=== PATIENT | male | born 1970 | race Caucasian/White ===

== ENCOUNTER 2018-10-24 19:45 | Inpatient (IN) | payer SELFPAY ==
[~2018-10-24] VITALS: Ht 172.7 cm; Wt 72.6 kg
--- OUTSIDE RECORDS SUMMARY | 2018-10-24 19:50 | XMS REPORT | Clinical Summary ---
Author Author Admin, ANNE Organization [facility] Address Unknown Phone Allergies, Adverse Reactions, Alerts Allergy Name Reaction Description Start Date Severity Status Provider No Known Allergies Carmel Saldana Conditions or Problems Problem Name Problem Code Onset Date Status Entry Date Provider Comment Standard Description Annotate PLEURISY 511.0 Active Corby Márquez MD Pleurisy without mention of effusion or current tuberculosis Health examination of defined subpopulations V70.5 Active Kiarra Stubbs LPN Health examination of defined subpopulations Bronchitis-Acute 466.0 Inactive Trey Burks DO Acute bronchitis Tobacco user 305.1 Active Trey Burks DO Tobacco use disorder Bronchitis-Acute ICD-466.0 Inactive Trey Burks DO Medication List Medication Instructions Start Date Stop Date Generic Name NDC Status Provider Patient Instruction PREDNISONE 20 MG TAB 1 tablet twice daily for 2 days, then 1 tablet once daily for 2 days PREDNISONE 82698110703 Active Trey Burks DO Active AZITHROMYCIN 250 MG TABS 2 po qd x 1 day, then 1 po qd x 4 days AZITHROMYCIN 73515917519 No Longer Active Trey Burks DO Active [facility] IBUPROFEN IB 200 MG TABS 600 mg q 6 hrs prn pain IBUPROFEN 60628284963 No Longer Active Trey Burks DO Active HYDROCODONE-ACETAMINOPHEN 5-325 MG TABS 1 or 2 q 6 hrs prn pain HYDROCODONE-ACETAMINOPHEN 07221978422 No Longer Active Trey Burks DO Active LORTAB 7.5-500 MG TABS take 1 tab po TID HYDROCODONE-ACETAMINOPHEN 33282315173 No Longer Active Trey Burks DO Active PREDNISONE 20 MG TAB 2 tabs daily for 3 days, 1 tab daily for 3 days, 1/2 tab daily for 2 days PREDNISONE 30830829135 No Longer Active Corby Márquez MD Active LORTAB 7.5-500 MG TABS take 1 tab po TID LORTAB 7.5-500 MG TABS HYDROCODONE-ACETAMINOPHEN Inactive HYDROCODONE-ACETAMINOPHEN 5-325 MG TABS 1 or 2 q 6 hrs prn pain HYDROCODONE-ACETAMINOPHEN 5-325 MG TABS 970982 HYDROCODONE-ACETAMINOPHEN Inactive [facility] IBUPROFEN IB 200 MG TABS 600 mg q 6 hrs prn pain [facility] IBUPROFEN IB 200 MG TABS 592698 IBUPROFEN Inactive PREDNISONE 20 MG TAB 2 tabs daily for 3 days, 1 tab daily for 3 days, 1/2 tab daily for 2 days PREDNISONE 20 MG TAB 536184 PREDNISONE Inactive AZITHROMYCIN 250 MG TABS 2 po qd x 1 day, then 1 po qd x 4 days AZITHROMYCIN 250 MG TABS 0247297 AZITHROMYCIN Inactive Vital Signs Date Name Value Unit Range Description blood pressure, diastolic 88 mm[Hg] BP snowden blood pressure, systolic 145 mm[Hg] BP sys height E&M 69 [in_us] Bdy height pulse rate E&M 80 /min Heart rate temperature E&M 98.3 [degF] Body temperature weight E&M 176.13 [lb_av] Weight Measured Encounters Code Encounter Date Provider Facility CPT-93247 Level 3 Est. 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 Patient 10:37:36 CDT Corby Márquez MD [facility] Procedures Code Procedure Name Date Entry Date Standard Description CPT-19710 Spec Collection and Handling Fee 11:50:17 PUBLIC WELFARE DIRECTOR
--- OUTSIDE RECORDS SUMMARY | 2018-10-24 19:50 | XMS REPORT | Clinical Summary ---
Author Author Admin, ANNE Organization [facility] Address Unknown Phone Unavailable Allergies, Adverse Reactions, Alerts Allergy Name Reaction Description Start Date Severity Status Provider No Known Allergies SOILA Rea Conditions or Problems Problem Name Problem Code [...] Active Trey Burks DO Tobacco use disorder Hypertension, benign essential 401.1 Active Do Beyer MD PhD Benign essential hypertension Bronchitis-Acute ICD-466.0 Inactive Trey Burks DO Medication List Medication Instructions Start Date Stop Date Generic Name [facility] Status Provider Patient Instruction LISINOPRIL-HYDROCHLOROTHIAZIDE 10-12.5 MG TABS 1 pill daily, for blood pressure LISINOPRIL-HYDROCHLOROTHIAZIDE 39078835742 Active Trey Burks DO Active TRAZODONE HCL 50 MG TABS 1 tab at bedtime TRAZODONE HCL 27568849810 Active Do Beyer MD PhD Active PREDNISONE 20 MG TAB 1 tablet twice daily for 2 days, then 1 tablet once daily for 2 days PREDNISONE 83498366111 No Longer Active Do Beyer MD PhD Active AZITHROMYCIN 250 MG TABS 2 po qd x 1 day, then 1 po qd x 4 days AZITHROMYCIN 57519984095 No Longer Active Trey W Vitaliy DO Active [facility] IBUPROFEN IB 200 MG TABS 600 mg q 6 hrs prn pain IBUPROFEN 73211685799 No Longer Active Trey Burks DO Active HYDROCODONE-ACETAMINOPHEN 5-325 MG TABS 1 or 2 q 6 hrs prn pain HYDROCODONE-ACETAMINOPHEN 69291579552 No Longer Active Trey Burks DO Active LORTAB 7.5-500 MG TABS take 1 tab po TID HYDROCODONE-ACETAMINOPHEN 13373957612 No Longer Active Trey Burks DO Active PREDNISONE 20 MG TAB 2 tabs daily for 3 days, 1 tab daily for 3 days, 1/2 tab daily for 2 days PREDNISONE 63119956408 No Longer Active Corby Márquez MD Active LORTAB 7.5-500 MG TABS take 1 tab po TID LORTAB 7.5-500 MG TABS HYDROCODONE-ACETAMINOPHEN Inactive HYDROCODONE-ACETAMINOPHEN 5-325 MG TABS 1 or 2 q 6 hrs prn pain HYDROCODONE-ACETAMINOPHEN 5-325 MG TABS 093793 HYDROCODONE-ACETAMINOPHEN Inactive [facility] IBUPROFEN IB 200 MG TABS 600 mg q 6 hrs prn pain [facility] IBUPROFEN IB 200 MG TABS 159205 IBUPROFEN Inactive PREDNISONE 20 MG TAB 1 tablet twice daily for 2 days, then 1 tablet once daily for 2 days PREDNISONE 20 MG TAB 519882 PREDNISONE Inactive PREDNISONE 20 MG TAB 2 tabs daily for 3 days, 1 tab daily for 3 days, 1/2 tab daily for 2 days PREDNISONE 20 MG TAB 097114 PREDNISONE Inactive AZITHROMYCIN 250 MG TABS 2 po qd x 1 day, then 1 po qd x 4 days AZITHROMYCIN 250 MG TABS 4293491 AZITHROMYCIN Inactive Vital Signs Date Name Value Unit Range Description blood pressure, diastolic - 8462-4 95 mm[Hg] BP snowden blood pressure, systolic - 8480-6 161 mm[Hg] BP sys pulse rate E&M - 8867-4 77 /min Heart rate temperature E&M 97.1 [degF] Body temperature weight E&M - 3141-9 168 [lb_av] Weight Measured blood pressure, diastolic - 8462-4 88 mm[Hg] BP snowden blood pressure, systolic - 8480-6 145 mm[Hg] BP sys height E&M - 8302-2 69 [in_us] Bdy height pulse rate E&M - 8867-4 80 /min Heart rate temperature E&M 98.3 [degF] Body temperature weight E&M - 3141-9 176.13 [lb_av] Weight Measured Diagnostic Results Date Name Value Unit Range Description Lab Report: CBC, Comp. Metabolic Panel, MICROALBUMIN - Chemistry sodium, serum 139 mmol/L 776-560 3152/09/03 potassium, serum 4.3 mmol/L 3.5-5.2 chloride, serum 101 mmol/L 98-107 carbon dioxide, venous blood 25.1 mmol/L 21.0-32.0 blood glucose 89 mg/dL 65-110 urea nitrogen, blood 23 mg/dL 7-18 creatinine, serum 1.20 mg/dL 0.60-1.30 alanine aminotransferase (SGPT), serum 27 U/L 12-78 aspartate aminotransferase (SGOT), serum 20 U/L 15-37 alkaline phosphatase, serum 70 U/L 50-136 calcium, serum 10.7 mg/dL 8.5-10.1 bilirubin, serum, total 0.60 mg/dL 0.00-1.00 albumin/creatinine ratio, urine < 30 mg/g mg/g{creat} 0-29 Lab Report: CBC, Comp. Metabolic Panel, MICROALBUMIN - Hematology leukocyte count, blood 7.6 10^3/MM^3 10*3/mm3 4.6-10.2 erythrocyte (RBC) count 4.70 10^6/MM^3 10*6/mm3 4.69-6.13 hemoglobin, blood 15.4 g/dL 13.5-17.5 hematocrit, blood 44.3 % 41.0-53.0 mean corpuscular volume, RBC 94 fL 80-97 mean corpuscular hemoglobin, RBC 32.8 pg 27.0-31.2 mean corpuscular hemoglobin concentration, RBC 34.8 G/DL % 31.8-35.4 red blood cell distribution width 13.8 % 11.6-14.8 platelet count 301 10^3/MM^3 10*3/mm3 142-424 Lab Report: CBC, Comp. Metabolic Panel, MICROALBUMIN - Lab microalbumin, urine 30 0-19 Lab Report: Thyroid Stimulating Hormone (L), Free Thyroxine (L) - Chemistry TSH 2.36 m[iU]/mL 0.36-3.74 thyroxine, serum, free 0.81 ng/dL 0.76-1.46 Encounters Code Encounter Date Provider Facility CPT-09399 Level 4 Est. Patient 20:00:09 CDT Do Beyer MD PhD [facility] CPT-89627 Level 3 Est. 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 Patient 10:37:36 CDT Corby Márquez MD [facility] Procedures Code Procedure Name Date Entry Date Standard Description CPT-89228 Spec Collection and Handling Fee 11:50:17 PARKING METER INSTALLER
--- OUTSIDE RECORDS SUMMARY | 2018-10-24 19:50 | XMS REPORT | Clinical Summary ---
Author Author Admin, E Organization [facility] Address Unknown Phone Unavailable Allergies, Adverse Reactions, Alerts Allergy Name Reaction Description Start Date Severity Status Provider No Known Allergies Josi Doherty Conditions or Problems Problem Name Problem Code [...] Do Beyer MD PhD Benign essential hypertension Bipolar affective disorder 296.80 Active Evin Graves MD Bipolar disorder, unspecified ADHD 314.01 Active Evin Graves MD Attention deficit disorder of childhood with hyperactivity Alcohol abuse 305.00 Active Evin Graves MD Alcohol abuse, unspecified drinking behavior Bronchitis-Acute ICD-466.0 Inactive Trey Burks DO Medication List Medication Instructions Start Date Stop Date Generic Name NDC Status Provider Patient Instruction ABILIFY 10 MG TABS 1 daily for Bipolar symptoms ARIPIPRAZOLE 65098468284 Active Evin Graves MD Active LISINOPRIL 10 MG TABS Take 1 tablet daily LISINOPRIL 11015794886 Active Hiwot Zavala Active LISINOPRIL-HYDROCHLOROTHIAZIDE 10-12.5 MG TABS 1 pill daily, for blood pressure LISINOPRIL-HYDROCHLOROTHIAZIDE 49782188938 No Longer Active Evin Graves MD Active TRAZODONE HCL 50 MG TABS 1 tab at bedtime TRAZODONE HCL 95215034406 Active Do Beyer MD PhD Active PREDNISONE 20 MG TAB 1 tablet twice daily for 2 days, then 1 tablet once daily for 2 days PREDNISONE 12085533540 No Longer Active Do Beyer MD PhD Active AZITHROMYCIN 250 MG TABS 2 po qd x 1 day, then 1 po qd x 4 days AZITHROMYCIN 48831115410 No Longer Active Trey Burks DO Active [facility] IBUPROFEN IB 200 MG TABS 600 mg q 6 hrs prn pain IBUPROFEN 86610195115 No Longer Active Trey Burks DO Active HYDROCODONE-ACETAMINOPHEN 5-325 MG TABS 1 or 2 q 6 hrs prn pain HYDROCODONE-ACETAMINOPHEN 48182798811 No Longer Active Trey Burks DO Active LORTAB 7.5-500 MG TABS take 1 tab po TID HYDROCODONE-ACETAMINOPHEN 63703888921 No Longer Active Trey Burks DO Active PREDNISONE 20 MG TAB 2 tabs daily for 3 days, 1 tab daily for 3 days, 1/2 tab daily for 2 days PREDNISONE 35456067022 No Longer Active Corby Márquez MD Active LORTAB 7.5-500 MG TABS take 1 tab po TID LORTAB 7.5-500 MG TABS HYDROCODONE-ACETAMINOPHEN Inactive HYDROCODONE-ACETAMINOPHEN 5-325 MG TABS 1 or 2 q 6 hrs prn pain HYDROCODONE-ACETAMINOPHEN 5-325 MG TABS 639321 HYDROCODONE-ACETAMINOPHEN Inactive [facility] IBUPROFEN IB 200 MG TABS 600 mg q 6 hrs prn pain [facility] IBUPROFEN IB 200 MG TABS 179908 IBUPROFEN Inactive PREDNISONE 20 MG TAB 1 tablet twice daily for 2 days, then 1 tablet once daily for 2 days PREDNISONE 20 MG TAB 763461 PREDNISONE Inactive LISINOPRIL-HYDROCHLOROTHIAZIDE 10-12.5 MG TABS 1 pill daily, for blood pressure LISINOPRIL-HYDROCHLOROTHIAZIDE 10-12.5 MG TABS 085409 LISINOPRIL-HYDROCHLOROTHIAZIDE Inactive PREDNISONE 20 MG TAB 2 tabs daily for 3 days, 1 tab daily for 3 days, 1/2 tab daily for 2 days PREDNISONE 20 MG TAB 382773 PREDNISONE Inactive AZITHROMYCIN 250 MG TABS 2 po qd x 1 day, then 1 po qd x 4 days AZITHROMYCIN 250 MG TABS 8176749 AZITHROMYCIN Inactive Vital Signs Date Name Value Unit Range Description blood pressure, diastolic - 8462-4 78 mm[Hg] BP snowden blood pressure, systolic - 8480-6 130 mm[Hg] BP sys pulse rate E&M - 8867-4 95 /min Heart rate temperature E&M 99.4 [degF] Body temperature weight E&M - 3141-9 159 [lb_av] Weight Measured Diagnostic Results Date Name Value Unit Range Description Lab Report: CBC, Comp. Metabolic Panel, MICROALBUMIN - Chemistry sodium, serum 139 mmol/L 098-623 4890/09/03 potassium, serum 4.3 mmol/L 3.5-5.2 chloride, serum [...] 0.76-1.46 Encounters Code Encounter Date Provider Facility CPT-62311 Level 4 Est. 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 Patient 20:00:09 CDT Do Beyer MD PhD [facility] CPT-28947 Level 3 Est. Patient 11:26:17 INDUSTRIAL SERVICER Trey Burks DO [facility] CPT-71104 Level 3 Est. Patient 10:37:36 CDT Corby Márquez MD [facility] Procedures Code Procedure Name Date Entry Date Standard Description CPT-19776 Spec Collection and Handling Fee 11:50:17 INDUSTRIAL SERVICER
--- OUTSIDE RECORDS SUMMARY | 2018-10-24 19:50 | XMS REPORT | Clinical Summary ---
Author Author Admin, E Organization [facility] Address Unknown Phone Unavailable Allergies, Adverse Reactions, [...] Instructions Start Date Stop Date Generic Name ND Status Provider Patient Instruction ABILIFY 10 MG TABS 1 daily for Bipolar symptoms ARIPIPRAZOLE 86791578936 Active Evin Graves MD Active LISINOPRIL 10 MG TABS Take 1 tablet daily LISINOPRIL 97865973857 Active Evin Graves MD Active LISINOPRIL-HYDROCHLOROTHIAZIDE 10-12.5 MG TABS 1 pill daily, for blood pressure LISINOPRIL-HYDROCHLOROTHIAZIDE 21398624369 No Longer Active Evin Graves MD Active TRAZODONE HCL 50 MG TABS 1 tab at bedtime TRAZODONE HCL 50228734559 Active Do Beyer MD PhD Active PREDNISONE 20 MG TAB 1 tablet twice daily for 2 days, then 1 tablet once daily for 2 days PREDNISONE 40929331590 No Longer Active Do Beyer MD PhD Active AZITHROMYCIN 250 MG TABS 2 po qd x 1 day, then 1 po qd x 4 days AZITHROMYCIN 30575063413 No Longer Active Trey Burks DO Active [facility] IBUPROFEN IB 200 MG TABS 600 mg q 6 hrs prn pain IBUPROFEN 03774368893 No Longer Active Trey Burks DO Active HYDROCODONE-ACETAMINOPHEN 5-325 MG TABS 1 or 2 q 6 hrs prn pain HYDROCODONE-ACETAMINOPHEN 10207617798 No Longer Active Trey Burks DO Active LORTAB 7.5-500 MG TABS take 1 tab po TID HYDROCODONE-ACETAMINOPHEN 88925056135 No Longer Active Trey Burks DO Active PREDNISONE 20 MG TAB 2 tabs daily for 3 days, 1 tab daily for 3 days, 1/2 tab daily for 2 days PREDNISONE 92930782530 No Longer Active Corby Márquez MD Active LORTAB 7.5-500 MG TABS take 1 tab po TID LORTAB 7.5-500 MG TABS HYDROCODONE-ACETAMINOPHEN Inactive HYDROCODONE-ACETAMINOPHEN 5-325 MG TABS 1 or 2 q 6 hrs prn pain HYDROCODONE-ACETAMINOPHEN 5-325 MG TABS 185996 HYDROCODONE-ACETAMINOPHEN Inactive [facility] IBUPROFEN IB 200 MG TABS 600 mg q 6 hrs prn pain [facility] IBUPROFEN IB 200 MG TABS 018362 IBUPROFEN Inactive PREDNISONE 20 MG TAB 1 tablet twice daily for 2 days, then 1 tablet once daily for 2 days PREDNISONE 20 MG TAB 743169 PREDNISONE Inactive LISINOPRIL-HYDROCHLOROTHIAZIDE 10-12.5 MG TABS 1 pill daily, for blood pressure LISINOPRIL-HYDROCHLOROTHIAZIDE 10-12.5 MG TABS 099922 LISINOPRIL-HYDROCHLOROTHIAZIDE Inactive PREDNISONE 20 MG TAB 2 tabs daily for 3 days, 1 tab daily for 3 days, 1/2 tab daily for 2 days PREDNISONE 20 MG TAB 390657 PREDNISONE Inactive AZITHROMYCIN 250 MG TABS 2 po qd x 1 day, then 1 po qd x 4 days AZITHROMYCIN 250 MG TABS 3222131 AZITHROMYCIN Inactive Vital Signs Date Name Value [...] MICROALBUMIN - Chemistry sodium, serum 139 mmol/L 971-385 6899/09/03 potassium, serum 4.3 mmol/L 3.5-5.2 chloride, serum [...] 0.76-1.46 Encounters Code Encounter Date Provider Facility CPT-85779 Level 4 Est. 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 Patient 20:00:09 CDT Do Beyer MD PhD [facility] CPT-44712 Level 3 Est. Patient 11:26:17 EGG BUYER Trey Burks DO [facility] CPT-82032 Level 3 Est. Patient 10:37:36 CDT Corby Márquez MD [facility] Procedures Code Procedure Name Date Entry Date Standard Description CPT-73159 Spec Collection and Handling Fee 11:50:17 EGG BUYER
--- OUTSIDE RECORDS SUMMARY | 2018-10-24 19:50 | XMS REPORT | Clinical Summary ---
Author Author Admin, E Organization [facility] Address Unknown Phone Unavailable Allergies, Adverse [...] TABS 1 daily for Bipolar symptoms ARIPIPRAZOLE 17159196272 Active Evin Graves MD Active LISINOPRIL 10 MG TABS Take 1 tablet daily LISINOPRIL 93353255322 Active Hiwot Zavala Active LISINOPRIL-HYDROCHLOROTHIAZIDE 10-12.5 MG TABS 1 pill daily, for blood pressure LISINOPRIL-HYDROCHLOROTHIAZIDE 93813742054 No Longer Active Evin Graves MD Active TRAZODONE HCL 50 MG TABS 1 tab at bedtime TRAZODONE HCL 92734861659 Active Do Beyer MD PhD Active PREDNISONE 20 MG TAB 1 tablet twice daily for 2 days, then 1 tablet once daily for 2 days PREDNISONE 03406884600 No Longer Active Do Beyer MD PhD Active AZITHROMYCIN 250 MG TABS 2 po qd x 1 day, then 1 po qd x 4 days AZITHROMYCIN 48592426101 No Longer Active Trey Burks DO Active [facility] IBUPROFEN IB 200 MG TABS 600 mg q 6 hrs prn pain IBUPROFEN 63594620098 No Longer Active Trey Burks DO Active HYDROCODONE-ACETAMINOPHEN 5-325 MG TABS 1 or 2 q 6 hrs prn pain HYDROCODONE-ACETAMINOPHEN 23983365516 No Longer Active Trey Burks DO Active LORTAB 7.5-500 MG TABS take 1 tab po TID HYDROCODONE-ACETAMINOPHEN 23972381299 No Longer Active Trey Burks DO Active PREDNISONE 20 MG TAB 2 tabs daily for 3 days, 1 tab daily for 3 days, 1/2 tab daily for 2 days PREDNISONE 70499714642 No Longer Active Corby Márquez MD Active LORTAB 7.5-500 MG TABS take 1 tab po TID LORTAB 7.5-500 MG TABS HYDROCODONE-ACETAMINOPHEN Inactive HYDROCODONE-ACETAMINOPHEN 5-325 MG TABS 1 or 2 q 6 hrs prn pain HYDROCODONE-ACETAMINOPHEN 5-325 MG TABS 669641 HYDROCODONE-ACETAMINOPHEN Inactive [facility] IBUPROFEN IB 200 MG TABS 600 mg q 6 hrs prn pain [facility] IBUPROFEN IB 200 MG TABS 394820 IBUPROFEN Inactive PREDNISONE 20 MG TAB 1 tablet twice daily for 2 days, then 1 tablet once daily for 2 days PREDNISONE 20 MG TAB 645184 PREDNISONE Inactive LISINOPRIL-HYDROCHLOROTHIAZIDE 10-12.5 MG TABS 1 pill daily, for blood pressure LISINOPRIL-HYDROCHLOROTHIAZIDE 10-12.5 MG TABS 539244 LISINOPRIL-HYDROCHLOROTHIAZIDE Inactive PREDNISONE 20 MG TAB 2 tabs daily for 3 days, 1 tab daily for 3 days, 1/2 tab daily for 2 days PREDNISONE 20 MG TAB 148684 PREDNISONE Inactive AZITHROMYCIN 250 MG TABS 2 po qd x 1 day, then 1 po qd x 4 days AZITHROMYCIN 250 MG TABS 5751991 AZITHROMYCIN Inactive Vital Signs Date Name Value [...] MICROALBUMIN - Chemistry sodium, serum 139 mmol/L 185-843 3514/09/03 potassium, serum 4.3 mmol/L 3.5-5.2 chloride, serum [...] 0.76-1.46 Encounters Code Encounter Date Provider Facility CPT-78723 Level 4 Est. 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 Patient 20:00:09 CDT Do Beyer MD PhD [facility] CPT-88406 Level 3 Est. Patient 11:26:17 NEWS COPY EDITOR Trey Burks DO [facility] CPT-69619 Level 3 Est. Patient 10:37:36 CDT Corby Márquez MD [facility] Procedures Code Procedure Name Date Entry Date Standard Description CPT-88205 Spec Collection and Handling Fee 11:50:17 NEWS COPY EDITOR
--- OUTSIDE RECORDS SUMMARY | 2018-10-24 19:51 | XMS REPORT | Clinical Summary ---
[...] Instructions Start Date Stop Date Generic Name [facility] Status Provider Patient Instruction LISINOPRIL-HYDROCHLOROTHIAZIDE 10-12.5 MG TABS 1 pill daily, for blood pressure LISINOPRIL-HYDROCHLOROTHIAZIDE 60944422178 Active Trey Burks DO Active TRAZODONE HCL 50 MG TABS 1 tab at bedtime TRAZODONE HCL 16784214020 Active Do Beyer MD PhD Active PREDNISONE 20 MG TAB 1 tablet twice daily for 2 days, then 1 tablet once daily for 2 days PREDNISONE 25024708484 No Longer Active Do Beyer MD PhD Active AZITHROMYCIN 250 MG TABS 2 po qd x 1 day, then 1 po qd x 4 days AZITHROMYCIN 11294955441 No Longer Active Trey W Vitaliy DO Active [facility] IBUPROFEN IB 200 MG TABS 600 mg q 6 hrs prn pain IBUPROFEN 02351033890 No Longer Active Trey Burks DO Active HYDROCODONE-ACETAMINOPHEN 5-325 MG TABS 1 or 2 q 6 hrs prn pain HYDROCODONE-ACETAMINOPHEN 63626749159 No Longer Active Trey Burks DO Active LORTAB 7.5-500 MG TABS take 1 tab po TID HYDROCODONE-ACETAMINOPHEN 34766004447 No Longer Active Trey Burks DO Active PREDNISONE 20 MG TAB 2 tabs daily for 3 days, 1 tab daily for 3 days, 1/2 tab daily for 2 days PREDNISONE 82864207667 No Longer Active Corby Márquez MD Active LORTAB 7.5-500 MG TABS take 1 tab po TID LORTAB 7.5-500 MG TABS HYDROCODONE-ACETAMINOPHEN Inactive HYDROCODONE-ACETAMINOPHEN 5-325 MG TABS 1 or 2 q 6 hrs prn pain HYDROCODONE-ACETAMINOPHEN 5-325 MG TABS 576983 HYDROCODONE-ACETAMINOPHEN Inactive [facility] IBUPROFEN IB 200 MG TABS 600 mg q 6 hrs prn pain [facility] IBUPROFEN IB 200 MG TABS 420334 IBUPROFEN Inactive PREDNISONE 20 MG TAB 1 tablet twice daily for 2 days, then 1 tablet once daily for 2 days PREDNISONE 20 MG TAB 849027 PREDNISONE Inactive PREDNISONE 20 MG TAB 2 tabs daily for 3 days, 1 tab daily for 3 days, 1/2 tab daily for 2 days PREDNISONE 20 MG TAB 798761 PREDNISONE Inactive AZITHROMYCIN 250 MG TABS 2 po qd x 1 day, then 1 po qd x 4 days AZITHROMYCIN 250 MG TABS 7504579 AZITHROMYCIN Inactive Vital Signs Date Name Value [...] MICROALBUMIN - Chemistry sodium, serum 139 mmol/L 748-095 0288/09/03 potassium, serum 4.3 mmol/L 3.5-5.2 chloride, serum [...] 0.76-1.46 Encounters Code Encounter Date Provider Facility CPT-61418 Level 4 Est. Patient 20:00:09 CDT Do Beyer MD PhD [facility] CPT-77938 Level 3 Est. 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 Patient 10:37:36 CDT Corby Márquez MD [facility] Procedures Code Procedure Name Date Entry Date Standard Description CPT-09212 Spec Collection and Handling Fee 11:50:17 BARN AND PROPERTY MANAGER
--- OUTSIDE RECORDS SUMMARY | 2018-10-24 19:51 | XMS REPORT | Clinical Summary ---
Author Author Admin, ANNE Organization [facility] Address Unknown Phone Allergies, Adverse Reactions, Alerts [...] tablet once daily for 2 days PREDNISONE 91090052607 Active Trey Burks DO Active AZITHROMYCIN 250 MG TABS 2 po qd x 1 day, then 1 po qd x 4 days AZITHROMYCIN 48614519994 No Longer Active Trey Burks DO Active [facility] IBUPROFEN IB 200 MG TABS 600 mg q 6 hrs prn pain IBUPROFEN 08446275470 No Longer Active Trey Burks DO Active HYDROCODONE-ACETAMINOPHEN 5-325 MG TABS 1 or 2 q 6 hrs prn pain HYDROCODONE-ACETAMINOPHEN 07142025132 No Longer Active Trey Burks DO Active LORTAB 7.5-500 MG TABS take 1 tab po TID HYDROCODONE-ACETAMINOPHEN 31827686449 No Longer Active Trey Burks DO Active PREDNISONE 20 MG TAB 2 tabs daily for 3 days, 1 tab daily for 3 days, 1/2 tab daily for 2 days PREDNISONE 05596227502 No Longer Active Corby Márquez MD Active LORTAB 7.5-500 MG TABS take 1 tab po TID LORTAB 7.5-500 MG TABS HYDROCODONE-ACETAMINOPHEN Inactive HYDROCODONE-ACETAMINOPHEN 5-325 MG TABS 1 or 2 q 6 hrs prn pain HYDROCODONE-ACETAMINOPHEN 5-325 MG TABS 093917 HYDROCODONE-ACETAMINOPHEN Inactive [facility] IBUPROFEN IB 200 MG TABS 600 mg q 6 hrs prn pain [facility] IBUPROFEN IB 200 MG TABS 139494 IBUPROFEN Inactive PREDNISONE 20 MG TAB 2 tabs daily for 3 days, 1 tab daily for 3 days, 1/2 tab daily for 2 days PREDNISONE 20 MG TAB 320541 PREDNISONE Inactive AZITHROMYCIN 250 MG TABS 2 po qd x 1 day, then 1 po qd x 4 days AZITHROMYCIN 250 MG TABS 8639860 AZITHROMYCIN Inactive Vital Signs Date Name Value Unit Range Description blood pressure, diastolic 88 mm[Hg] BP snowden blood pressure, systolic 145 mm[Hg] BP sys height E&M 69 [in_us] Bdy height pulse rate E&M 80 /min Heart rate temperature E&M 98.3 [degF] Body temperature weight E&M 176.13 [lb_av] Weight Measured Encounters Code Encounter Date Provider Facility CPT-00573 Level 3 Est. 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 Patient 10:37:36 CDT Corby Márquez MD [facility] Procedures Code Procedure Name Date Entry Date Standard Description CPT-68277 Spec Collection and Handling Fee 11:50:17 TRIM MECHANIC
--- OUTSIDE RECORDS SUMMARY | 2018-10-24 19:51 | XMS REPORT | Clinical Summary ---
Author Author Admin, ANNE Organization [facility] Address Unknown Phone Unavailable Allergies, Adverse Reactions, [...] Instructions Start Date Stop Date Generic Name [facility] Status Provider Patient Instruction LISINOPRIL-HYDROCHLOROTHIAZIDE 10-12.5 MG TABS 1 pill daily, for blood pressure LISINOPRIL-HYDROCHLOROTHIAZIDE 72348991286 Active Trey Burks DO Active TRAZODONE HCL 50 MG TABS 1 tab at bedtime TRAZODONE HCL 02571866057 Active Do Beyer MD PhD Active PREDNISONE 20 MG TAB 1 tablet twice daily for 2 days, then 1 tablet once daily for 2 days PREDNISONE 18565970364 No Longer Active Do Beyer MD PhD Active AZITHROMYCIN 250 MG TABS 2 po qd x 1 day, then 1 po qd x 4 days AZITHROMYCIN 19966239260 No Longer Active Trey W Vitaliy DO Active [facility] IBUPROFEN IB 200 MG TABS 600 mg q 6 hrs prn pain IBUPROFEN 24355481397 No Longer Active Trey Burks DO Active HYDROCODONE-ACETAMINOPHEN 5-325 MG TABS 1 or 2 q 6 hrs prn pain HYDROCODONE-ACETAMINOPHEN 17398686570 No Longer Active Trey Burks DO Active LORTAB 7.5-500 MG TABS take 1 tab po TID HYDROCODONE-ACETAMINOPHEN 93310213814 No Longer Active Trey Burks DO Active PREDNISONE 20 MG TAB 2 tabs daily for 3 days, 1 tab daily for 3 days, 1/2 tab daily for 2 days PREDNISONE 90570428540 No Longer Active Corby Márquez MD Active LORTAB 7.5-500 MG TABS take 1 tab po TID LORTAB 7.5-500 MG TABS HYDROCODONE-ACETAMINOPHEN Inactive HYDROCODONE-ACETAMINOPHEN 5-325 MG TABS 1 or 2 q 6 hrs prn pain HYDROCODONE-ACETAMINOPHEN 5-325 MG TABS 326142 HYDROCODONE-ACETAMINOPHEN Inactive [facility] IBUPROFEN IB 200 MG TABS 600 mg q 6 hrs prn pain [facility] IBUPROFEN IB 200 MG TABS 698087 IBUPROFEN Inactive PREDNISONE 20 MG TAB 1 tablet twice daily for 2 days, then 1 tablet once daily for 2 days PREDNISONE 20 MG TAB 215802 PREDNISONE Inactive PREDNISONE 20 MG TAB 2 tabs daily for 3 days, 1 tab daily for 3 days, 1/2 tab daily for 2 days PREDNISONE 20 MG TAB 120663 PREDNISONE Inactive AZITHROMYCIN 250 MG TABS 2 po qd x 1 day, then 1 po qd x 4 days AZITHROMYCIN 250 MG TABS 4256358 AZITHROMYCIN Inactive Vital Signs Date Name Value [...] MICROALBUMIN - Chemistry sodium, serum 139 mmol/L 331-593 8208/09/03 potassium, serum 4.3 mmol/L 3.5-5.2 chloride, serum [...] MICROALBUMIN - Lab microalbumin, urine 30 0-19 Encounters Code Encounter Date Provider Facility CPT-37638 Level 4 Est. Patient 20:00:09 CDT Do Beyer MD PhD [facility] CPT-09534 Level 3 Est. 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 Patient 10:37:36 CDT Corby Márquez MD [facility] Procedures Code Procedure Name Date Entry Date Standard Description CPT-75729 Spec Collection and Handling Fee 11:50:17 PERMASTONE INSTALLER
--- OUTSIDE RECORDS SUMMARY | 2018-10-24 19:51 | XMS REPORT | Clinical Summary ---
Author Author Admin, ANNE Organization [facility] Address Unknown Phone Allergies, Adverse Reactions, Alerts [...] tablet once daily for 2 days PREDNISONE 46093539397 Active Trey Burks DO Active AZITHROMYCIN 250 MG TABS 2 po qd x 1 day, then 1 po qd x 4 days AZITHROMYCIN 44986700796 No Longer Active Trey Burks DO Active [facility] IBUPROFEN IB 200 MG TABS 600 mg q 6 hrs prn pain IBUPROFEN 64573264616 No Longer Active Trey Burks DO Active HYDROCODONE-ACETAMINOPHEN 5-325 MG TABS 1 or 2 q 6 hrs prn pain HYDROCODONE-ACETAMINOPHEN 73746133526 No Longer Active Trey Burks DO Active LORTAB 7.5-500 MG TABS take 1 tab po TID HYDROCODONE-ACETAMINOPHEN 63692175106 No Longer Active Trey Burks DO Active PREDNISONE 20 MG TAB 2 tabs daily for 3 days, 1 tab daily for 3 days, 1/2 tab daily for 2 days PREDNISONE 96950047668 No Longer Active Corby Márquez MD Active LORTAB 7.5-500 MG TABS take 1 tab po TID LORTAB 7.5-500 MG TABS HYDROCODONE-ACETAMINOPHEN Inactive HYDROCODONE-ACETAMINOPHEN 5-325 MG TABS 1 or 2 q 6 hrs prn pain HYDROCODONE-ACETAMINOPHEN 5-325 MG TABS 949713 HYDROCODONE-ACETAMINOPHEN Inactive [facility] IBUPROFEN IB 200 MG TABS 600 mg q 6 hrs prn pain [facility] IBUPROFEN IB 200 MG TABS 864417 IBUPROFEN Inactive PREDNISONE 20 MG TAB 2 tabs daily for 3 days, 1 tab daily for 3 days, 1/2 tab daily for 2 days PREDNISONE 20 MG TAB 272010 PREDNISONE Inactive AZITHROMYCIN 250 MG TABS 2 po qd x 1 day, then 1 po qd x 4 days AZITHROMYCIN 250 MG TABS 5950836 AZITHROMYCIN Inactive Vital Signs Date Name Value Unit Range Description blood pressure, diastolic 88 mm[Hg] BP snowden blood pressure, systolic 145 mm[Hg] BP sys height E&M 69 [in_us] Bdy height pulse rate E&M 80 /min Heart rate temperature E&M 98.3 [degF] Body temperature weight E&M 176.13 [lb_av] Weight Measured Encounters Code Encounter Date Provider Facility CPT-52946 Level 3 Est. 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 Patient 10:37:36 CDT Corby Márquez MD [facility] Procedures Code Procedure Name Date Entry Date Standard Description CPT-89330 Spec Collection and Handling Fee 11:50:17 SCRIPT WRITER
--- OUTSIDE RECORDS SUMMARY | 2018-10-24 19:51 | XMS REPORT | Clinical Summary ---
Author Author Admin, ANNE Organization [facility] Address Unknown Phone Unavailable Allergies, Adverse Reactions, Alerts Allergy Name Reaction Description Start Date Severity Status Provider No Known Allergies Isis Steward MA Conditions or Problems Problem Name Problem Code [...] Instructions Start Date Stop Date Generic Name [facility] Status Provider Patient Instruction LISINOPRIL-HYDROCHLOROTHIAZIDE 10-12.5 MG TABS 1 pill daily, for blood pressure LISINOPRIL-HYDROCHLOROTHIAZIDE 93192003515 Active Trey Burks DO Active TRAZODONE HCL 50 MG TABS 1 tab at bedtime TRAZODONE HCL 01066888037 Active Do Beyer MD PhD Active PREDNISONE 20 MG TAB 1 tablet twice daily for 2 days, then 1 tablet once daily for 2 days PREDNISONE 32668763607 No Longer Active Do Beyer MD PhD Active AZITHROMYCIN 250 MG TABS 2 po qd x 1 day, then 1 po qd x 4 days AZITHROMYCIN 50618333211 No Longer Active Trey W Vitaliy DO Active [facility] IBUPROFEN IB 200 MG TABS 600 mg q 6 hrs prn pain IBUPROFEN 21388096370 No Longer Active Trey Burks DO Active HYDROCODONE-ACETAMINOPHEN 5-325 MG TABS 1 or 2 q 6 hrs prn pain HYDROCODONE-ACETAMINOPHEN 80488736867 No Longer Active Trey Burks DO Active LORTAB 7.5-500 MG TABS take 1 tab po TID HYDROCODONE-ACETAMINOPHEN 82353116304 No Longer Active Trey Burks DO Active PREDNISONE 20 MG TAB 2 tabs daily for 3 days, 1 tab daily for 3 days, 1/2 tab daily for 2 days PREDNISONE 15841365226 No Longer Active Corby Márquez MD Active LORTAB 7.5-500 MG TABS take 1 tab po TID LORTAB 7.5-500 MG TABS HYDROCODONE-ACETAMINOPHEN Inactive HYDROCODONE-ACETAMINOPHEN 5-325 MG TABS 1 or 2 q 6 hrs prn pain HYDROCODONE-ACETAMINOPHEN 5-325 MG TABS 898232 HYDROCODONE-ACETAMINOPHEN Inactive [facility] IBUPROFEN IB 200 MG TABS 600 mg q 6 hrs prn pain [facility] IBUPROFEN IB 200 MG TABS 117311 IBUPROFEN Inactive PREDNISONE 20 MG TAB 1 tablet twice daily for 2 days, then 1 tablet once daily for 2 days PREDNISONE 20 MG TAB 553609 PREDNISONE Inactive PREDNISONE 20 MG TAB 2 tabs daily for 3 days, 1 tab daily for 3 days, 1/2 tab daily for 2 days PREDNISONE 20 MG TAB 424005 PREDNISONE Inactive AZITHROMYCIN 250 MG TABS 2 po qd x 1 day, then 1 po qd x 4 days AZITHROMYCIN 250 MG TABS 2291034 AZITHROMYCIN Inactive Vital Signs Date Name Value [...] E&M - 3141-9 176.13 [lb_av] Weight Measured Encounters Code Encounter Date Provider Facility CPT-85455 Level 4 Est. Patient 20:00:09 CDT Do Beyer MD PhD [facility] CPT-02065 Level 3 Est. 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 Patient 10:37:36 CDT Corby Márquez MD [facility] Procedures Code Procedure Name Date Entry Date Standard Description CPT-76304 Spec Collection and Handling Fee 11:50:17 BOTTLE ASSEMBLER
--- OUTSIDE RECORDS SUMMARY | 2018-10-24 19:51 | XMS REPORT | Clinical Summary ---
Author Author Admin, ANNE Organization [facility] Address Unknown Phone Unavailable Allergies, Adverse Reactions, [...] Instructions Start Date Stop Date Generic Name [facility] Status Provider Patient Instruction LISINOPRIL-HYDROCHLOROTHIAZIDE 10-12.5 MG TABS 1 pill daily, for blood pressure LISINOPRIL-HYDROCHLOROTHIAZIDE 99910535480 Active Trey Burks DO Active TRAZODONE HCL 50 MG TABS 1 tab at bedtime TRAZODONE HCL 91735131098 Active Do Beyer MD PhD Active PREDNISONE 20 MG TAB 1 tablet twice daily for 2 days, then 1 tablet once daily for 2 days PREDNISONE 32166536681 No Longer Active Do Beyer MD PhD Active AZITHROMYCIN 250 MG TABS 2 po qd x 1 day, then 1 po qd x 4 days AZITHROMYCIN 40582261353 No Longer Active Trey W Vitaliy DO Active [facility] IBUPROFEN IB 200 MG TABS 600 mg q 6 hrs prn pain IBUPROFEN 93109876724 No Longer Active Trey Burks DO Active HYDROCODONE-ACETAMINOPHEN 5-325 MG TABS 1 or 2 q 6 hrs prn pain HYDROCODONE-ACETAMINOPHEN 13495752481 No Longer Active Trey Burks DO Active LORTAB 7.5-500 MG TABS take 1 tab po TID HYDROCODONE-ACETAMINOPHEN 05750799119 No Longer Active Trey Burks DO Active PREDNISONE 20 MG TAB 2 tabs daily for 3 days, 1 tab daily for 3 days, 1/2 tab daily for 2 days PREDNISONE 90823528511 No Longer Active Corby Márquez MD Active LORTAB 7.5-500 MG TABS take 1 tab po TID LORTAB 7.5-500 MG TABS HYDROCODONE-ACETAMINOPHEN Inactive HYDROCODONE-ACETAMINOPHEN 5-325 MG TABS 1 or 2 q 6 hrs prn pain HYDROCODONE-ACETAMINOPHEN 5-325 MG TABS 707317 HYDROCODONE-ACETAMINOPHEN Inactive [facility] IBUPROFEN IB 200 MG TABS 600 mg q 6 hrs prn pain [facility] IBUPROFEN IB 200 MG TABS 638400 IBUPROFEN Inactive PREDNISONE 20 MG TAB 1 tablet twice daily for 2 days, then 1 tablet once daily for 2 days PREDNISONE 20 MG TAB 219003 PREDNISONE Inactive PREDNISONE 20 MG TAB 2 tabs daily for 3 days, 1 tab daily for 3 days, 1/2 tab daily for 2 days PREDNISONE 20 MG TAB 211716 PREDNISONE Inactive AZITHROMYCIN 250 MG TABS 2 po qd x 1 day, then 1 po qd x 4 days AZITHROMYCIN 250 MG TABS 1414846 AZITHROMYCIN Inactive Vital Signs Date Name Value [...] Measured Encounters Code Encounter Date Provider Facility CPT-63643 Level 4 Est. Patient 20:00:09 CDT Do Beyer MD PhD [facility] CPT-59436 Level 3 Est. 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
--- OUTSIDE RECORDS SUMMARY | 2018-10-24 19:51 | XMS REPORT | Clinical Summary ---
Author Author Admin, ANNE Organization [facility] Address Unknown Phone Unavailable Allergies, Adverse Reactions, [...] Instructions Start Date Stop Date Generic Name [facility] Status Provider Patient Instruction LISINOPRIL-HYDROCHLOROTHIAZIDE 10-12.5 MG TABS 1 pill daily, for blood pressure LISINOPRIL-HYDROCHLOROTHIAZIDE 77651846735 Active Trey Burks DO Active TRAZODONE HCL 50 MG TABS 1 tab at bedtime TRAZODONE HCL 13334486750 Active Do Beyer MD PhD Active PREDNISONE 20 MG TAB 1 tablet twice daily for 2 days, then 1 tablet once daily for 2 days PREDNISONE 10489129751 No Longer Active Do Beyer MD PhD Active AZITHROMYCIN 250 MG TABS 2 po qd x 1 day, then 1 po qd x 4 days AZITHROMYCIN 07501821661 No Longer Active Trey W Vitaliy DO Active [facility] IBUPROFEN IB 200 MG TABS 600 mg q 6 hrs prn pain IBUPROFEN 83020162251 No Longer Active Trey Burks DO Active HYDROCODONE-ACETAMINOPHEN 5-325 MG TABS 1 or 2 q 6 hrs prn pain HYDROCODONE-ACETAMINOPHEN 59069728576 No Longer Active Trey Burks DO Active LORTAB 7.5-500 MG TABS take 1 tab po TID HYDROCODONE-ACETAMINOPHEN 45548631015 No Longer Active Trey Burks DO Active PREDNISONE 20 MG TAB 2 tabs daily for 3 days, 1 tab daily for 3 days, 1/2 tab daily for 2 days PREDNISONE 77780072832 No Longer Active Corby Márquez MD Active LORTAB 7.5-500 MG TABS take 1 tab po TID LORTAB 7.5-500 MG TABS HYDROCODONE-ACETAMINOPHEN Inactive HYDROCODONE-ACETAMINOPHEN 5-325 MG TABS 1 or 2 q 6 hrs prn pain HYDROCODONE-ACETAMINOPHEN 5-325 MG TABS 734340 HYDROCODONE-ACETAMINOPHEN Inactive [facility] IBUPROFEN IB 200 MG TABS 600 mg q 6 hrs prn pain [facility] IBUPROFEN IB 200 MG TABS 999302 IBUPROFEN Inactive PREDNISONE 20 MG TAB 1 tablet twice daily for 2 days, then 1 tablet once daily for 2 days PREDNISONE 20 MG TAB 425173 PREDNISONE Inactive PREDNISONE 20 MG TAB 2 tabs daily for 3 days, 1 tab daily for 3 days, 1/2 tab daily for 2 days PREDNISONE 20 MG TAB 843980 PREDNISONE Inactive AZITHROMYCIN 250 MG TABS 2 po qd x 1 day, then 1 po qd x 4 days AZITHROMYCIN 250 MG TABS 9203041 AZITHROMYCIN Inactive Vital Signs Date Name Value [...] MICROALBUMIN - Chemistry sodium, serum 139 mmol/L 477-308 7301/09/03 potassium, serum 4.3 mmol/L 3.5-5.2 chloride, serum [...] 0-19 Encounters Code Encounter Date Provider Facility CPT-54274 Level 4 Est. Patient 20:00:09 CDT Do Beyer MD PhD [facility] CPT-46595 Level 3 Est. 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 Patient 10:37:36 CDT Corby Márquez MD [facility] Procedures Code Procedure Name Date Entry Date Standard Description CPT-53591 Spec Collection and Handling Fee 11:50:17 POLICY ADVISER
--- OUTSIDE RECORDS SUMMARY | 2018-10-24 19:52 | XMS REPORT | Clinical Summary ---
Author Author Admin, ANNE Organization [facility] Address Unknown Phone Unavailable Allergies, Adverse Reactions, [...] Instructions Start Date Stop Date Generic Name [facility] Status Provider Patient Instruction LISINOPRIL-HYDROCHLOROTHIAZIDE 10-12.5 MG TABS 1 pill daily, for blood pressure LISINOPRIL-HYDROCHLOROTHIAZIDE 16224098465 Active Trey Burks DO Active TRAZODONE HCL 50 MG TABS 1 tab at bedtime TRAZODONE HCL 41501002146 Active Do Beyer MD PhD Active PREDNISONE 20 MG TAB 1 tablet twice daily for 2 days, then 1 tablet once daily for 2 days PREDNISONE 58409929801 No Longer Active Do Beyer MD PhD Active AZITHROMYCIN 250 MG TABS 2 po qd x 1 day, then 1 po qd x 4 days AZITHROMYCIN 38903859976 No Longer Active Trey W Vitaliy DO Active [facility] IBUPROFEN IB 200 MG TABS 600 mg q 6 hrs prn pain IBUPROFEN 44160875973 No Longer Active Trey Burks DO Active HYDROCODONE-ACETAMINOPHEN 5-325 MG TABS 1 or 2 q 6 hrs prn pain HYDROCODONE-ACETAMINOPHEN 05286489692 No Longer Active Trey Burks DO Active LORTAB 7.5-500 MG TABS take 1 tab po TID HYDROCODONE-ACETAMINOPHEN 84057515920 No Longer Active Trey Burks DO Active PREDNISONE 20 MG TAB 2 tabs daily for 3 days, 1 tab daily for 3 days, 1/2 tab daily for 2 days PREDNISONE 29595903824 No Longer Active Corby Márquez MD Active LORTAB 7.5-500 MG TABS take 1 tab po TID LORTAB 7.5-500 MG TABS HYDROCODONE-ACETAMINOPHEN Inactive HYDROCODONE-ACETAMINOPHEN 5-325 MG TABS 1 or 2 q 6 hrs prn pain HYDROCODONE-ACETAMINOPHEN 5-325 MG TABS 759733 HYDROCODONE-ACETAMINOPHEN Inactive [facility] IBUPROFEN IB 200 MG TABS 600 mg q 6 hrs prn pain [facility] IBUPROFEN IB 200 MG TABS 020531 IBUPROFEN Inactive PREDNISONE 20 MG TAB 1 tablet twice daily for 2 days, then 1 tablet once daily for 2 days PREDNISONE 20 MG TAB 733014 PREDNISONE Inactive PREDNISONE 20 MG TAB 2 tabs daily for 3 days, 1 tab daily for 3 days, 1/2 tab daily for 2 days PREDNISONE 20 MG TAB 056278 PREDNISONE Inactive AZITHROMYCIN 250 MG TABS 2 po qd x 1 day, then 1 po qd x 4 days AZITHROMYCIN 250 MG TABS 6129160 AZITHROMYCIN Inactive Vital Signs Date Name Value [...] MICROALBUMIN - Chemistry sodium, serum 139 mmol/L 488-417 4587/09/03 potassium, serum 4.3 mmol/L 3.5-5.2 chloride, serum [...] 0-19 Encounters Code Encounter Date Provider Facility CPT-63901 Level 4 Est. Patient 20:00:09 CDT Do Beyer MD PhD [facility] CPT-59758 Level 3 Est. 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 Patient 10:37:36 CDT Corby Márquez MD [facility] Procedures Code Procedure Name Date Entry Date Standard Description CPT-33721 Spec Collection and Handling Fee 11:50:17 ROADING ENGINEER
--- OUTSIDE RECORDS SUMMARY | 2018-10-24 19:52 | XMS REPORT | Clinical Summary ---
Author Author Admin, ANNE Organization [facility] Address Unknown Phone Unavailable Allergies, Adverse Reactions, [...] Instructions Start Date Stop Date Generic Name [facility] Status Provider Patient Instruction LISINOPRIL-HYDROCHLOROTHIAZIDE 10-12.5 MG TABS 1 pill daily, for blood pressure LISINOPRIL-HYDROCHLOROTHIAZIDE 51201370856 Active Trey Burks DO Active TRAZODONE HCL 50 MG TABS 1 tab at bedtime TRAZODONE HCL 60651728600 Active Do Beyer MD PhD Active PREDNISONE 20 MG TAB 1 tablet twice daily for 2 days, then 1 tablet once daily for 2 days PREDNISONE 93862230103 No Longer Active Do Beyer MD PhD Active AZITHROMYCIN 250 MG TABS 2 po qd x 1 day, then 1 po qd x 4 days AZITHROMYCIN 96327639176 No Longer Active Trey W Vitaliy DO Active [facility] IBUPROFEN IB 200 MG TABS 600 mg q 6 hrs prn pain IBUPROFEN 82078808629 No Longer Active Trey Burks DO Active HYDROCODONE-ACETAMINOPHEN 5-325 MG TABS 1 or 2 q 6 hrs prn pain HYDROCODONE-ACETAMINOPHEN 34282250159 No Longer Active Trey Burks DO Active LORTAB 7.5-500 MG TABS take 1 tab po TID HYDROCODONE-ACETAMINOPHEN 11388828620 No Longer Active Trey Burks DO Active PREDNISONE 20 MG TAB 2 tabs daily for 3 days, 1 tab daily for 3 days, 1/2 tab daily for 2 days PREDNISONE 80837421476 No Longer Active Corby Márquez MD Active LORTAB 7.5-500 MG TABS take 1 tab po TID LORTAB 7.5-500 MG TABS HYDROCODONE-ACETAMINOPHEN Inactive HYDROCODONE-ACETAMINOPHEN 5-325 MG TABS 1 or 2 q 6 hrs prn pain HYDROCODONE-ACETAMINOPHEN 5-325 MG TABS 716323 HYDROCODONE-ACETAMINOPHEN Inactive [facility] IBUPROFEN IB 200 MG TABS 600 mg q 6 hrs prn pain [facility] IBUPROFEN IB 200 MG TABS 135335 IBUPROFEN Inactive PREDNISONE 20 MG TAB 1 tablet twice daily for 2 days, then 1 tablet once daily for 2 days PREDNISONE 20 MG TAB 629225 PREDNISONE Inactive PREDNISONE 20 MG TAB 2 tabs daily for 3 days, 1 tab daily for 3 days, 1/2 tab daily for 2 days PREDNISONE 20 MG TAB 918751 PREDNISONE Inactive AZITHROMYCIN 250 MG TABS 2 po qd x 1 day, then 1 po qd x 4 days AZITHROMYCIN 250 MG TABS 0417234 AZITHROMYCIN Inactive Vital Signs Date Name Value [...] MICROALBUMIN - Chemistry sodium, serum 139 mmol/L 463-641 5380/09/03 potassium, serum 4.3 mmol/L 3.5-5.2 chloride, serum [...] 0-19 Encounters Code Encounter Date Provider Facility CPT-57200 Level 4 Est. Patient 20:00:09 CDT Do Beyer MD PhD [facility] CPT-05895 Level 3 Est. 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 CPT-15849 Level 3 Est. Patient 10:37:36 CDT Corby Márquez MD [facility] Procedures Code Procedure Name Date Entry Date Standard Description CPT-33463 Spec Collection and Handling Fee 11:50:17 CARRIER OPERATOR
--- OUTSIDE RECORDS SUMMARY | 2018-10-24 19:52 | XMS REPORT | Clinical Summary ---
Author Author Admin, ANNE Organization [facility] Address Unknown Phone Unavailable Allergies, Adverse [...] Instructions Start Date Stop Date Generic Name [facility] Status Provider Patient Instruction LISINOPRIL-HYDROCHLOROTHIAZIDE 10-12.5 MG TABS 1 pill daily, for blood pressure LISINOPRIL-HYDROCHLOROTHIAZIDE 10111931118 Active Trey Burks DO Active TRAZODONE HCL 50 MG TABS 1 tab at bedtime TRAZODONE HCL 57370340542 Active Do Beyer MD PhD Active PREDNISONE 20 MG TAB 1 tablet twice daily for 2 days, then 1 tablet once daily for 2 days PREDNISONE 99112709418 No Longer Active Do Beyer MD PhD Active AZITHROMYCIN 250 MG TABS 2 po qd x 1 day, then 1 po qd x 4 days AZITHROMYCIN 62758366817 No Longer Active Trey W Vitaliy DO Active [facility] IBUPROFEN IB 200 MG TABS 600 mg q 6 hrs prn pain IBUPROFEN 88395711842 No Longer Active Trey Burks DO Active HYDROCODONE-ACETAMINOPHEN 5-325 MG TABS 1 or 2 q 6 hrs prn pain HYDROCODONE-ACETAMINOPHEN 65699205805 No Longer Active Trey uBrks DO Active LORTAB 7.5-500 MG TABS take 1 tab po TID HYDROCODONE-ACETAMINOPHEN 67767373548 No Longer Active Trey Burks DO Active PREDNISONE 20 MG TAB 2 tabs daily for 3 days, 1 tab daily for 3 days, 1/2 tab daily for 2 days PREDNISONE 99675550008 No Longer Active Corby Márquez MD Active LORTAB 7.5-500 MG TABS take 1 tab po TID LORTAB 7.5-500 MG TABS HYDROCODONE-ACETAMINOPHEN Inactive HYDROCODONE-ACETAMINOPHEN 5-325 MG TABS 1 or 2 q 6 hrs prn pain HYDROCODONE-ACETAMINOPHEN 5-325 MG TABS 012498 HYDROCODONE-ACETAMINOPHEN Inactive [facility] IBUPROFEN IB 200 MG TABS 600 mg q 6 hrs prn pain [facility] IBUPROFEN IB 200 MG TABS 725365 IBUPROFEN Inactive PREDNISONE 20 MG TAB 1 tablet twice daily for 2 days, then 1 tablet once daily for 2 days PREDNISONE 20 MG TAB 791295 PREDNISONE Inactive PREDNISONE 20 MG TAB 2 tabs daily for 3 days, 1 tab daily for 3 days, 1/2 tab daily for 2 days PREDNISONE 20 MG TAB 054527 PREDNISONE Inactive AZITHROMYCIN 250 MG TABS 2 po qd x 1 day, then 1 po qd x 4 days AZITHROMYCIN 250 MG TABS 1858926 AZITHROMYCIN Inactive Vital Signs Date Name Value [...] MICROALBUMIN - Chemistry sodium, serum 139 mmol/L 828-392 0979/09/03 potassium, serum 4.3 mmol/L 3.5-5.2 chloride, serum [...] 0.76-1.46 Encounters Code Encounter Date Provider Facility CPT-52457 Level 4 Est. Patient 20:00:09 CDT Do Beyer MD PhD [facility] CPT-03615 Level 3 Est. 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 Patient 10:37:36 CDT Corby Márquez MD [facility] Procedures Code Procedure Name Date Entry Date Standard Description CPT-97180 Spec Collection and Handling Fee 11:50:17 OVERHEAD CRANE TECHNICIAN
--- OUTSIDE RECORDS SUMMARY | 2018-10-24 19:52 | XMS REPORT | Clinical Summary ---
Author Author Admin, ANNE Organization [facility] Address Unknown Phone Unavailable Allergies, Adverse [...] TABS 1 daily for Bipolar symptoms ARIPIPRAZOLE 73438882475 Active Evin Graves MD Active LISINOPRIL 10 MG TABS Take 1 tablet daily LISINOPRIL 89174511576 Active Evin Graves MD Active LISINOPRIL-HYDROCHLOROTHIAZIDE 10-12.5 MG TABS 1 pill daily, for blood pressure LISINOPRIL-HYDROCHLOROTHIAZIDE 34135314399 No Longer Active Evin Graves MD Active TRAZODONE HCL 50 MG TABS 1 tab at bedtime TRAZODONE HCL 46411600237 Active Do Beyer MD PhD Active PREDNISONE 20 MG TAB 1 tablet twice daily for 2 days, then 1 tablet once daily for 2 days PREDNISONE 80434799769 No Longer Active Do Beyer MD PhD Active AZITHROMYCIN 250 MG TABS 2 po qd x 1 day, then 1 po qd x 4 days AZITHROMYCIN 26168439098 No Longer Active Trye uBrks DO Active [facility] IBUPROFEN IB 200 MG TABS 600 mg q 6 hrs prn pain IBUPROFEN 65157068788 No Longer Active Trey Burks DO Active HYDROCODONE-ACETAMINOPHEN 5-325 MG TABS 1 or 2 q 6 hrs prn pain HYDROCODONE-ACETAMINOPHEN 70727640355 No Longer Active Trey Burks DO Active LORTAB 7.5-500 MG TABS take 1 tab po TID HYDROCODONE-ACETAMINOPHEN 09714744729 No Longer Active Trey Burks DO Active PREDNISONE 20 MG TAB 2 tabs daily for 3 days, 1 tab daily for 3 days, 1/2 tab daily for 2 days PREDNISONE 87333079684 No Longer Active Corby Márquez MD Active LORTAB 7.5-500 MG TABS take 1 tab po TID LORTAB 7.5-500 MG TABS HYDROCODONE-ACETAMINOPHEN Inactive HYDROCODONE-ACETAMINOPHEN 5-325 MG TABS 1 or 2 q 6 hrs prn pain HYDROCODONE-ACETAMINOPHEN 5-325 MG TABS 035719 HYDROCODONE-ACETAMINOPHEN Inactive [facility] IBUPROFEN IB 200 MG TABS 600 mg q 6 hrs prn pain [facility] IBUPROFEN IB 200 MG TABS 961864 IBUPROFEN Inactive PREDNISONE 20 MG TAB 1 tablet twice daily for 2 days, then 1 tablet once daily for 2 days PREDNISONE 20 MG TAB 356902 PREDNISONE Inactive LISINOPRIL-HYDROCHLOROTHIAZIDE 10-12.5 MG TABS 1 pill daily, for blood pressure LISINOPRIL-HYDROCHLOROTHIAZIDE 10-12.5 MG TABS 598683 LISINOPRIL-HYDROCHLOROTHIAZIDE Inactive PREDNISONE 20 MG TAB 2 tabs daily for 3 days, 1 tab daily for 3 days, 1/2 tab daily for 2 days PREDNISONE 20 MG TAB 508362 PREDNISONE Inactive AZITHROMYCIN 250 MG TABS 2 po qd x 1 day, then 1 po qd x 4 days AZITHROMYCIN 250 MG TABS 9089767 AZITHROMYCIN Inactive Vital Signs Date Name Value Unit Range Description blood pressure, diastolic 78 mm[Hg] BP snowden blood pressure, systolic 130 mm[Hg] BP sys pulse rate E&M 95 /min Heart rate temperature E&M 99.4 [degF] Body temperature weight E&M 159 [lb_av] Weight Measured blood pressure, diastolic 95 mm[Hg] BP snowden blood pressure, systolic 161 mm[Hg] BP sys pulse rate E&M 77 /min Heart rate temperature E&M 97.1 [degF] Body temperature weight E&M 168 [lb_av] Weight Measured blood pressure, diastolic 88 mm[Hg] BP snowden blood pressure, systolic 145 mm[Hg] BP sys height E&M 69 [in_us] Bdy height pulse rate E&M 80 /min Heart rate temperature E&M 98.3 [degF] Body temperature weight E&M 176.13 [lb_av] Weight Measured Diagnostic Results Date Name Value Unit Range Description Lab Report: CBC, Comp. Metabolic Panel, MICROALBUMIN - Chemistry sodium, serum 139 mmol/L 158-215 2265/09/03 potassium, serum 4.3 mmol/L 3.5-5.2 chloride, serum [...] 0.76-1.46 Encounters Code Encounter Date Provider Facility CPT-41849 Level 4 Est. 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 Patient 20:00:09 CDT Do Beyer MD PhD [facility] CPT-66714 Level 3 Est. 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 Patient 10:37:36 CDT Corby Márquez MD [facility] Procedures Code Procedure Name Date Entry Date Standard Description CPT-32862 Spec Collection and Handling Fee 11:50:17 ASPHALT DISTRIBUTOR TENDER
--- OUTSIDE RECORDS SUMMARY | 2018-10-24 19:52 | XMS REPORT | Clinical Summary ---
Author Author Admin, ANNE Organization [facility] Address Unknown Phone Unavailable Allergies, [...] Instructions Start Date Stop Date Generic Name [facility] Status Provider Patient Instruction LISINOPRIL-HYDROCHLOROTHIAZIDE 10-12.5 MG TABS 1 pill daily, for blood pressure LISINOPRIL-HYDROCHLOROTHIAZIDE 66295861625 Active Trey Burks DO Active TRAZODONE HCL 50 MG TABS 1 tab at bedtime TRAZODONE HCL 89850291319 Active Do Beyer MD PhD Active PREDNISONE 20 MG TAB 1 tablet twice daily for 2 days, then 1 tablet once daily for 2 days PREDNISONE 79300276791 No Longer Active Do Beyer MD PhD Active AZITHROMYCIN 250 MG TABS 2 po qd x 1 day, then 1 po qd x 4 days AZITHROMYCIN 78561665182 No Longer Active Trey W Vitaliy DO Active [facility] IBUPROFEN IB 200 MG TABS 600 mg q 6 hrs prn pain IBUPROFEN 38854428909 No Longer Active Trey Burks DO Active HYDROCODONE-ACETAMINOPHEN 5-325 MG TABS 1 or 2 q 6 hrs prn pain HYDROCODONE-ACETAMINOPHEN 98802836578 No Longer Active Trey Burks DO Active LORTAB 7.5-500 MG TABS take 1 tab po TID HYDROCODONE-ACETAMINOPHEN 10106009992 No Longer Active Trey Burks DO Active PREDNISONE 20 MG TAB 2 tabs daily for 3 days, 1 tab daily for 3 days, 1/2 tab daily for 2 days PREDNISONE 13983377634 No Longer Active Corby Márquez MD Active LORTAB 7.5-500 MG TABS take 1 tab po TID LORTAB 7.5-500 MG TABS HYDROCODONE-ACETAMINOPHEN Inactive HYDROCODONE-ACETAMINOPHEN 5-325 MG TABS 1 or 2 q 6 hrs prn pain HYDROCODONE-ACETAMINOPHEN 5-325 MG TABS 321081 HYDROCODONE-ACETAMINOPHEN Inactive [facility] IBUPROFEN IB 200 MG TABS 600 mg q 6 hrs prn pain [facility] IBUPROFEN IB 200 MG TABS 662858 IBUPROFEN Inactive PREDNISONE 20 MG TAB 1 tablet twice daily for 2 days, then 1 tablet once daily for 2 days PREDNISONE 20 MG TAB 298263 PREDNISONE Inactive PREDNISONE 20 MG TAB 2 tabs daily for 3 days, 1 tab daily for 3 days, 1/2 tab daily for 2 days PREDNISONE 20 MG TAB 231639 PREDNISONE Inactive AZITHROMYCIN 250 MG TABS 2 po qd x 1 day, then 1 po qd x 4 days AZITHROMYCIN 250 MG TABS 9466050 AZITHROMYCIN Inactive Vital Signs Date Name Value [...] MICROALBUMIN - Chemistry sodium, serum 139 mmol/L 529-852 0306/09/03 potassium, serum 4.3 mmol/L 3.5-5.2 chloride, serum [...] CBC, Comp. Metabolic Panel, MICROALBUMIN - Hematology mean corpuscular volume, RBC 94 fL 80-97 hematocrit, blood 44.3 % 41.0-53.0 hemoglobin, blood 15.4 g/dL 13.5-17.5 erythrocyte (RBC) count 4.70 10^6/MM^3 10*6/mm3 4.69-6.13 leukocyte count, blood 7.6 10^3/MM^3 10*3/mm3 4.6-10.2 mean corpuscular hemoglobin, RBC 32.8 pg 27.0-31.2 [...] 0.76-1.46 Encounters Code Encounter Date Provider Facility CPT-31463 Level 4 Est. Patient 20:00:09 CDT Do Beyer MD PhD [facility] CPT-75711 Level 3 Est. 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 Patient 10:37:36 CDT Corby Márquez MD [facility] Procedures Code Procedure Name Date Entry Date Standard Description CPT-22571 Spec Collection and Handling Fee 11:50:17 LEAD PRINTER
--- OUTSIDE RECORDS SUMMARY | 2018-10-24 19:52 | XMS REPORT | Clinical Summary ---
Author Author Admin, ANNE Organization [facility] Address Unknown Phone Allergies, Adverse Reactions, Alerts [...] tablet once daily for 2 days PREDNISONE 34612865185 Active Trey Burks DO Active AZITHROMYCIN 250 MG TABS 2 po qd x 1 day, then 1 po qd x 4 days AZITHROMYCIN 02258273775 No Longer Active Trey Burks DO Active [facility] IBUPROFEN IB 200 MG TABS 600 mg q 6 hrs prn pain IBUPROFEN 54673295138 No Longer Active Trey Burks DO Active HYDROCODONE-ACETAMINOPHEN 5-325 MG TABS 1 or 2 q 6 hrs prn pain HYDROCODONE-ACETAMINOPHEN 78164719957 No Longer Active Trey Burks DO Active LORTAB 7.5-500 MG TABS take 1 tab po TID HYDROCODONE-ACETAMINOPHEN 54397162212 No Longer Active Trey Burks DO Active PREDNISONE 20 MG TAB 2 tabs daily for 3 days, 1 tab daily for 3 days, 1/2 tab daily for 2 days PREDNISONE 93659521441 No Longer Active Corby Márquez MD Active LORTAB 7.5-500 MG TABS take 1 tab po TID LORTAB 7.5-500 MG TABS HYDROCODONE-ACETAMINOPHEN Inactive HYDROCODONE-ACETAMINOPHEN 5-325 MG TABS 1 or 2 q 6 hrs prn pain HYDROCODONE-ACETAMINOPHEN 5-325 MG TABS 912539 HYDROCODONE-ACETAMINOPHEN Inactive [facility] IBUPROFEN IB 200 MG TABS 600 mg q 6 hrs prn pain [facility] IBUPROFEN IB 200 MG TABS 317239 IBUPROFEN Inactive PREDNISONE 20 MG TAB 2 tabs daily for 3 days, 1 tab daily for 3 days, 1/2 tab daily for 2 days PREDNISONE 20 MG TAB 538542 PREDNISONE Inactive AZITHROMYCIN 250 MG TABS 2 po qd x 1 day, then 1 po qd x 4 days AZITHROMYCIN 250 MG TABS 4583583 AZITHROMYCIN Inactive Vital Signs Date Name Value Unit Range Description blood pressure, diastolic 88 mm[Hg] BP snowden blood pressure, systolic 145 mm[Hg] BP sys height E&M 69 [in_us] Bdy height pulse rate E&M 80 /min Heart rate temperature E&M 98.3 [degF] Body temperature weight E&M 176.13 [lb_av] Weight Measured Encounters Code Encounter Date Provider Facility CPT-26956 Level 3 Est. 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 Patient 10:37:36 CDT Corby Márquez MD [facility] Procedures Code Procedure Name Date Entry Date Standard Description CPT-91006 Spec Collection and Handling Fee 11:50:17 STAFF PSYCHOLOGIST
--- OUTSIDE RECORDS SUMMARY | 2018-10-24 19:53 | XMS REPORT | Clinical Summary ---
Author Author Admin, ANNE Organization [facility] Address Unknown Phone Unavailable Allergies, Adverse Reactions, [...] Instructions Start Date Stop Date Generic Name [facility] Status Provider Patient Instruction LISINOPRIL-HYDROCHLOROTHIAZIDE 10-12.5 MG TABS 1 pill daily, for blood pressure LISINOPRIL-HYDROCHLOROTHIAZIDE 78411310166 Active Idalmis Earl [employer] T[employer]OR Active TRAZODONE HCL 50 MG TABS 1 tab at bedtime TRAZODONE HCL 88236532899 Active Do Beyer MD PhD Active PREDNISONE 20 MG TAB 1 tablet twice daily for 2 days, then 1 tablet once daily for 2 days PREDNISONE 80096837321 No Longer Active Do Beyer MD PhD Active AZITHROMYCIN 250 MG TABS 2 po qd x 1 day, then 1 po qd x 4 days AZITHROMYCIN 51973235639 No Longer Active Trey W Vitaliy DO Active [facility] IBUPROFEN IB 200 MG TABS 600 mg q 6 hrs prn pain IBUPROFEN 13119711770 No Longer Active Trey Burks DO Active HYDROCODONE-ACETAMINOPHEN 5-325 MG TABS 1 or 2 q 6 hrs prn pain HYDROCODONE-ACETAMINOPHEN 41711120092 No Longer Active Trey Burks DO Active LORTAB 7.5-500 MG TABS take 1 tab po TID HYDROCODONE-ACETAMINOPHEN 45393514559 No Longer Active Trey Burks DO Active PREDNISONE 20 MG TAB 2 tabs daily for 3 days, 1 tab daily for 3 days, 1/2 tab daily for 2 days PREDNISONE 72739863199 No Longer Active Corby Márquez MD Active LORTAB 7.5-500 MG TABS take 1 tab po TID LORTAB 7.5-500 MG TABS HYDROCODONE-ACETAMINOPHEN Inactive HYDROCODONE-ACETAMINOPHEN 5-325 MG TABS 1 or 2 q 6 hrs prn pain HYDROCODONE-ACETAMINOPHEN 5-325 MG TABS 960579 HYDROCODONE-ACETAMINOPHEN Inactive [facility] IBUPROFEN IB 200 MG TABS 600 mg q 6 hrs prn pain [facility] IBUPROFEN IB 200 MG TABS 888170 IBUPROFEN Inactive PREDNISONE 20 MG TAB 1 tablet twice daily for 2 days, then 1 tablet once daily for 2 days PREDNISONE 20 MG TAB 060197 PREDNISONE Inactive PREDNISONE 20 MG TAB 2 tabs daily for 3 days, 1 tab daily for 3 days, 1/2 tab daily for 2 days PREDNISONE 20 MG TAB 837397 PREDNISONE Inactive AZITHROMYCIN 250 MG TABS 2 po qd x 1 day, then 1 po qd x 4 days AZITHROMYCIN 250 MG TABS 9967572 AZITHROMYCIN Inactive Vital Signs Date Name Value Unit Range Description blood pressure, diastolic 95 mm[Hg] BP snowden [...] MICROALBUMIN - Chemistry sodium, serum 139 mmol/L 703-840 4908/09/03 potassium, serum 4.3 mmol/L 3.5-5.2 chloride, serum [...] Hormone (L), Free Thyroxine (L) - Chemistry thyroxine, serum, free 0.81 ng/dL 0.76-1.46 TSH 2.36 m[iU]/mL 0.36-3.74 Encounters Code Encounter Date Provider Facility CPT-55784 Level 4 Est. Patient 20:00:09 CDT Do Beyer MD PhD [facility] CPT-88790 Level 3 Est. 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 CPT-95847 Level 3 Est. Patient 10:37:36 CDT Corby Márquez MD [facility] Procedures Code Procedure Name Date Entry Date Standard Description CPT-92160 Spec Collection and Handling Fee 11:50:17 ORDNANCE TECHNICIAN
--- OUTSIDE RECORDS SUMMARY | 2018-10-24 19:53 | XMS REPORT | Clinical Summary ---
Author Author Admin, ANNE Organization [facility] Address Unknown Phone Allergies, Adverse Reactions, [...] tablet once daily for 2 days PREDNISONE 18163523568 Active Trey Burks DO Active AZITHROMYCIN 250 MG TABS 2 po qd x 1 day, then 1 po qd x 4 days AZITHROMYCIN 91719283436 No Longer Active Trey Burks DO Active [facility] IBUPROFEN IB 200 MG TABS 600 mg q 6 hrs prn pain IBUPROFEN 99372546598 No Longer Active Trey Burks DO Active HYDROCODONE-ACETAMINOPHEN 5-325 MG TABS 1 or 2 q 6 hrs prn pain HYDROCODONE-ACETAMINOPHEN 16962323545 No Longer Active Trey Burks DO Active LORTAB 7.5-500 MG TABS take 1 tab po TID HYDROCODONE-ACETAMINOPHEN 39253391951 No Longer Active Trey Burks DO Active PREDNISONE 20 MG TAB 2 tabs daily for 3 days, 1 tab daily for 3 days, 1/2 tab daily for 2 days PREDNISONE 21112906337 No Longer Active Corby Márquez MD Active LORTAB 7.5-500 MG TABS take 1 tab po TID LORTAB 7.5-500 MG TABS HYDROCODONE-ACETAMINOPHEN Inactive HYDROCODONE-ACETAMINOPHEN 5-325 MG TABS 1 or 2 q 6 hrs prn pain HYDROCODONE-ACETAMINOPHEN 5-325 MG TABS 537221 HYDROCODONE-ACETAMINOPHEN Inactive [facility] IBUPROFEN IB 200 MG TABS 600 mg q 6 hrs prn pain [facility] IBUPROFEN IB 200 MG TABS 961617 IBUPROFEN Inactive PREDNISONE 20 MG TAB 2 tabs daily for 3 days, 1 tab daily for 3 days, 1/2 tab daily for 2 days PREDNISONE 20 MG TAB 413224 PREDNISONE Inactive AZITHROMYCIN 250 MG TABS 2 po qd x 1 day, then 1 po qd x 4 days AZITHROMYCIN 250 MG TABS 0865387 AZITHROMYCIN Inactive Vital Signs Date Name Value Unit Range Description blood pressure, diastolic 88 mm[Hg] BP snowden blood pressure, systolic 145 mm[Hg] BP sys height E&M 69 [in_us] Bdy height pulse rate E&M 80 /min Heart rate temperature E&M 98.3 [degF] Body temperature weight E&M 176.13 [lb_av] Weight Measured Encounters Code Encounter Date Provider Facility CPT-43330 Level 3 Est. 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 Patient 10:37:36 CDT Corby Márquez MD [facility] Procedures Code Procedure Name Date Entry Date Standard Description CPT-78039 Spec Collection and Handling Fee 11:50:17 SHOT FIREMAN
--- OUTSIDE RECORDS SUMMARY | 2018-10-24 19:53 | XMS REPORT | Clinical Summary ---
Author Author Admin, ANNE Organization [facility] Address Unknown Phone Unavailable Allergies, Adverse [...] 1 pill daily, for blood pressure LISINOPRIL-HYDROCHLOROTHIAZIDE 30153745275 Active Trey Burks DO Active TRAZODONE HCL 50 MG TABS 1 tab at bedtime TRAZODONE HCL 58320852873 Active Do Beyer MD PhD Active PREDNISONE 20 MG TAB 1 tablet twice daily for 2 days, then 1 tablet once daily for 2 days PREDNISONE 26613749142 No Longer Active Do Beyer MD PhD Active AZITHROMYCIN 250 MG TABS 2 po qd x 1 day, then 1 po qd x 4 days AZITHROMYCIN 89683957053 No Longer Active Trey W Vitaliy DO Active [facility] IBUPROFEN IB 200 MG TABS 600 mg q 6 hrs prn pain IBUPROFEN 48379735817 No Longer Active Trey Burks DO Active HYDROCODONE-ACETAMINOPHEN 5-325 MG TABS 1 or 2 q 6 hrs prn pain HYDROCODONE-ACETAMINOPHEN 68627694614 No Longer Active Trey Burks DO Active LORTAB 7.5-500 MG TABS take 1 tab po TID HYDROCODONE-ACETAMINOPHEN 22256334082 No Longer Active Trey Burks DO Active PREDNISONE 20 MG TAB 2 tabs daily for 3 days, 1 tab daily for 3 days, 1/2 tab daily for 2 days PREDNISONE 42864760841 No Longer Active Corby Márquez MD Active LORTAB 7.5-500 MG TABS take 1 tab po TID LORTAB 7.5-500 MG TABS HYDROCODONE-ACETAMINOPHEN Inactive HYDROCODONE-ACETAMINOPHEN 5-325 MG TABS 1 or 2 q 6 hrs prn pain HYDROCODONE-ACETAMINOPHEN 5-325 MG TABS 886668 HYDROCODONE-ACETAMINOPHEN Inactive [facility] IBUPROFEN IB 200 MG TABS 600 mg q 6 hrs prn pain [facility] IBUPROFEN IB 200 MG TABS 018666 IBUPROFEN Inactive PREDNISONE 20 MG TAB 1 tablet twice daily for 2 days, then 1 tablet once daily for 2 days PREDNISONE 20 MG TAB 615246 PREDNISONE Inactive PREDNISONE 20 MG TAB 2 tabs daily for 3 days, 1 tab daily for 3 days, 1/2 tab daily for 2 days PREDNISONE 20 MG TAB 811281 PREDNISONE Inactive AZITHROMYCIN 250 MG TABS 2 po qd x 1 day, then 1 po qd x 4 days AZITHROMYCIN 250 MG TABS 3401447 AZITHROMYCIN Inactive Vital Signs Date Name Value [...] Measured Encounters Code Encounter Date Provider Facility CPT-44699 Level 4 Est. Patient 20:00:09 CDT Do Beyer MD PhD [facility] CPT-96933 Level 3 Est. 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 Patient 10:37:36 CDT Corby Márquez MD [facility] Procedures Code Procedure Name Date Entry Date Standard Description CPT-35190 Spec Collection and Handling Fee 11:50:17 TOY PAINTER
--- OUTSIDE RECORDS SUMMARY | 2018-10-24 19:53 | XMS REPORT | Clinical Summary ---
Author Author Admin, Yudith Organization [facility] Address Unknown Phone Unavailable Allergies, Adverse Reactions, [...] Instructions Start Date Stop Date Generic Name [facility] Status Provider Patient Instruction LISINOPRIL-HYDROCHLOROTHIAZIDE 10-12.5 MG TABS 1 pill daily, for blood pressure LISINOPRIL-HYDROCHLOROTHIAZIDE 76193836134 Active Idalmis Earl HOSPICE LIAISON Active TRAZODONE HCL 50 MG TABS 1 tab at bedtime TRAZODONE HCL 89674819376 Active Do Beyer MD PhD Active PREDNISONE 20 MG TAB 1 tablet twice daily for 2 days, then 1 tablet once daily for 2 days PREDNISONE 52538219469 No Longer Active Do Beyer MD PhD Active AZITHROMYCIN 250 MG TABS 2 po qd x 1 day, then 1 po qd x 4 days AZITHROMYCIN 15714103482 No Longer Active Trey W Vitaliy DO Active [facility] IBUPROFEN IB 200 MG TABS 600 mg q 6 hrs prn pain IBUPROFEN 40293692743 No Longer Active Trey Burks DO Active HYDROCODONE-ACETAMINOPHEN 5-325 MG TABS 1 or 2 q 6 hrs prn pain HYDROCODONE-ACETAMINOPHEN 95806796978 No Longer Active Trey Burks DO Active LORTAB 7.5-500 MG TABS take 1 tab po TID HYDROCODONE-ACETAMINOPHEN 95643208700 No Longer Active Trey Burks DO Active PREDNISONE 20 MG TAB 2 tabs daily for 3 days, 1 tab daily for 3 days, 1/2 tab daily for 2 days PREDNISONE 62071721064 No Longer Active Corby Márquez MD Active LORTAB 7.5-500 MG TABS take 1 tab po TID LORTAB 7.5-500 MG TABS HYDROCODONE-ACETAMINOPHEN Inactive HYDROCODONE-ACETAMINOPHEN 5-325 MG TABS 1 or 2 q 6 hrs prn pain HYDROCODONE-ACETAMINOPHEN 5-325 MG TABS 455251 HYDROCODONE-ACETAMINOPHEN Inactive [facility] IBUPROFEN IB 200 MG TABS 600 mg q 6 hrs prn pain [facility] IBUPROFEN IB 200 MG TABS 843367 IBUPROFEN Inactive PREDNISONE 20 MG TAB 1 tablet twice daily for 2 days, then 1 tablet once daily for 2 days PREDNISONE 20 MG TAB 805896 PREDNISONE Inactive PREDNISONE 20 MG TAB 2 tabs daily for 3 days, 1 tab daily for 3 days, 1/2 tab daily for 2 days PREDNISONE 20 MG TAB 385912 PREDNISONE Inactive AZITHROMYCIN 250 MG TABS 2 po qd x 1 day, then 1 po qd x 4 days AZITHROMYCIN 250 MG TABS 1566061 AZITHROMYCIN Inactive Vital Signs Date Name Value [...] MICROALBUMIN - Chemistry sodium, serum 139 mmol/L 045-309 4692/09/03 potassium, serum 4.3 mmol/L 3.5-5.2 chloride, serum [...] 0.76-1.46 Encounters Code Encounter Date Provider Facility CPT-18657 Level 4 Est. Patient 20:00:09 CDT Do Beyer MD PhD [facility] CPT-89866 Level 3 Est. 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 Patient 10:37:36 CDT Corby Márquez MD [facility] Procedures Code Procedure Name Date Entry Date Standard Description CPT-37226 Spec Collection and Handling Fee 11:50:17 PULP BEATER
--- OUTSIDE RECORDS SUMMARY | 2018-10-24 19:53 | XMS REPORT | Clinical Summary ---
Author Author Admin, ANNE Organization [facility] Address Unknown Phone Allergies, Adverse Reactions, [...] tablet once daily for 2 days PREDNISONE 77764467694 Active Trey Burks DO Active AZITHROMYCIN 250 MG TABS 2 po qd x 1 day, then 1 po qd x 4 days AZITHROMYCIN 80250915835 No Longer Active Trey Burks DO Active [facility] IBUPROFEN IB 200 MG TABS 600 mg q 6 hrs prn pain IBUPROFEN 78640895108 No Longer Active Trey Burks DO Active HYDROCODONE-ACETAMINOPHEN 5-325 MG TABS 1 or 2 q 6 hrs prn pain HYDROCODONE-ACETAMINOPHEN 95952226692 No Longer Active Trey Burks DO Active LORTAB 7.5-500 MG TABS take 1 tab po TID HYDROCODONE-ACETAMINOPHEN 14279994748 No Longer Active Trey Burks DO Active PREDNISONE 20 MG TAB 2 tabs daily for 3 days, 1 tab daily for 3 days, 1/2 tab daily for 2 days PREDNISONE 20561738708 No Longer Active Corby Márquez MD Active LORTAB 7.5-500 MG TABS take 1 tab po TID LORTAB 7.5-500 MG TABS HYDROCODONE-ACETAMINOPHEN Inactive HYDROCODONE-ACETAMINOPHEN 5-325 MG TABS 1 or 2 q 6 hrs prn pain HYDROCODONE-ACETAMINOPHEN 5-325 MG TABS 658053 HYDROCODONE-ACETAMINOPHEN Inactive [facility] IBUPROFEN IB 200 MG TABS 600 mg q 6 hrs prn pain [facility] IBUPROFEN IB 200 MG TABS 916383 IBUPROFEN Inactive PREDNISONE 20 MG TAB 2 tabs daily for 3 days, 1 tab daily for 3 days, 1/2 tab daily for 2 days PREDNISONE 20 MG TAB 551467 PREDNISONE Inactive AZITHROMYCIN 250 MG TABS 2 po qd x 1 day, then 1 po qd x 4 days AZITHROMYCIN 250 MG TABS 1135300 AZITHROMYCIN Inactive Vital Signs Date Name Value Unit Range Description blood pressure, diastolic 88 mm[Hg] BP snowden blood pressure, systolic 145 mm[Hg] BP sys height E&M 69 [in_us] Bdy height pulse rate E&M 80 /min Heart rate temperature E&M 98.3 [degF] Body temperature weight E&M 176.13 [lb_av] Weight Measured Encounters Code Encounter Date Provider Facility CPT-88386 Level 3 Est. 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 Patient 10:37:36 CDT Corby Márquez MD [facility] Procedures Code Procedure Name Date Entry Date Standard Description CPT-73054 Spec Collection and Handling Fee 11:50:17 COPPER MINER
--- OUTSIDE RECORDS SUMMARY | 2018-10-24 19:53 | XMS REPORT | Clinical Summary ---
Author Author Admin, ANNE Organization [facility] Address Unknown Phone Unavailable Allergies, Adverse [...] Start Date Stop Date Generic Name [facility] Status Provider Patient Instruction LISINOPRIL-HYDROCHLOROTHIAZIDE 10-12.5 MG TABS 1 pill daily, for blood pressure LISINOPRIL-HYDROCHLOROTHIAZIDE 06283378805 Active Trey Burks DO Active TRAZODONE HCL 50 MG TABS 1 tab at bedtime TRAZODONE HCL 12531265915 Active Do Beyer MD PhD Active PREDNISONE 20 MG TAB 1 tablet twice daily for 2 days, then 1 tablet once daily for 2 days PREDNISONE 07778605057 No Longer Active Do Beyer MD PhD Active AZITHROMYCIN 250 MG TABS 2 po qd x 1 day, then 1 po qd x 4 days AZITHROMYCIN 45459949655 No Longer Active Trey W Vitaliy DO Active [facility] IBUPROFEN IB 200 MG TABS 600 mg q 6 hrs prn pain IBUPROFEN 33590638371 No Longer Active Trey Burks DO Active HYDROCODONE-ACETAMINOPHEN 5-325 MG TABS 1 or 2 q 6 hrs prn pain HYDROCODONE-ACETAMINOPHEN 99693833737 No Longer Active Trey Burks DO Active LORTAB 7.5-500 MG TABS take 1 tab po TID HYDROCODONE-ACETAMINOPHEN 24470699972 No Longer Active Trey Burks DO Active PREDNISONE 20 MG TAB 2 tabs daily for 3 days, 1 tab daily for 3 days, 1/2 tab daily for 2 days PREDNISONE 67082457148 No Longer Active Corby Márquez MD Active LORTAB 7.5-500 MG TABS take 1 tab po TID LORTAB 7.5-500 MG TABS HYDROCODONE-ACETAMINOPHEN Inactive HYDROCODONE-ACETAMINOPHEN 5-325 MG TABS 1 or 2 q 6 hrs prn pain HYDROCODONE-ACETAMINOPHEN 5-325 MG TABS 313300 HYDROCODONE-ACETAMINOPHEN Inactive [facility] IBUPROFEN IB 200 MG TABS 600 mg q 6 hrs prn pain [facility] IBUPROFEN IB 200 MG TABS 567703 IBUPROFEN Inactive PREDNISONE 20 MG TAB 1 tablet twice daily for 2 days, then 1 tablet once daily for 2 days PREDNISONE 20 MG TAB 212678 PREDNISONE Inactive PREDNISONE 20 MG TAB 2 tabs daily for 3 days, 1 tab daily for 3 days, 1/2 tab daily for 2 days PREDNISONE 20 MG TAB 307122 PREDNISONE Inactive AZITHROMYCIN 250 MG TABS 2 po qd x 1 day, then 1 po qd x 4 days AZITHROMYCIN 250 MG TABS 0887019 AZITHROMYCIN Inactive Vital Signs Date Name Value [...] Measured Encounters Code Encounter Date Provider Facility CPT-80707 Level 4 Est. Patient 20:00:09 CDT Do Beyer MD PhD [facility] CPT-74616 Level 3 Est. Patient 11:26:17 GRADUATE RECRUITER Trey Burks DO [facility] CPT-93590 Level 3 Est. Patient 10:37:36 CDT Corby Márquez MD [facility] Procedures Code Procedure Name Date Entry Date Standard Description CPT-73336 Spec Collection and Handling Fee 11:50:17 GRADUATE RECRUITER
--- OUTSIDE RECORDS SUMMARY | 2018-10-24 19:53 | XMS REPORT | Clinical Summary ---
Author Author Admin, ANNE Organization [facility] Address Unknown Phone Unavailable Allergies, Adverse Reactions, [...] hypertension Bipolar affective disorder 296.80 Active Evin Grvaes MD Bipolar disorder, unspecified ADHD 314.01 Active Evin Graves MD Attention deficit disorder of childhood with hyperactivity Alcohol abuse 305.00 Active Evin Graves MD Alcohol abuse, unspecified drinking behavior Bronchitis-Acute ICD-466.0 Inactive Trey Burks DO Medication List Medication Instructions Start Date Stop Date Generic Name ND Status Provider Patient Instruction ABILIFY 10 MG TABS 1 daily for Bipolar symptoms ARIPIPRAZOLE 75074026861 Active Evin Graves MD Active LISINOPRIL 10 MG TABS Take 1 tablet daily LISINOPRIL 62616992997 Active Evin Graves MD Active LISINOPRIL-HYDROCHLOROTHIAZIDE 10-12.5 MG TABS 1 pill daily, for blood pressure LISINOPRIL-HYDROCHLOROTHIAZIDE 63089409830 No Longer Active Evin Graves MD Active TRAZODONE HCL 50 MG TABS 1 tab at bedtime TRAZODONE HCL 46501535089 Active Do Beyer MD PhD Active PREDNISONE 20 MG TAB 1 tablet twice daily for 2 days, then 1 tablet once daily for 2 days PREDNISONE 82309659457 No Longer Active Do Beyer MD PhD Active AZITHROMYCIN 250 MG TABS 2 po qd x 1 day, then 1 po qd x 4 days AZITHROMYCIN 10219792352 No Longer Active Trey Burks DO Active [facility] IBUPROFEN IB 200 MG TABS 600 mg q 6 hrs prn pain IBUPROFEN 06293118994 No Longer Active Trey Burks DO Active HYDROCODONE-ACETAMINOPHEN 5-325 MG TABS 1 or 2 q 6 hrs prn pain HYDROCODONE-ACETAMINOPHEN 08424253996 No Longer Active Trey Burks DO Active LORTAB 7.5-500 MG TABS take 1 tab po TID HYDROCODONE-ACETAMINOPHEN 30088976416 No Longer Active Trey Burks DO Active PREDNISONE 20 MG TAB 2 tabs daily for 3 days, 1 tab daily for 3 days, 1/2 tab daily for 2 days PREDNISONE 11089493012 No Longer Active Corby Márquez MD Active LORTAB 7.5-500 MG TABS take 1 tab po TID LORTAB 7.5-500 MG TABS HYDROCODONE-ACETAMINOPHEN Inactive HYDROCODONE-ACETAMINOPHEN 5-325 MG TABS 1 or 2 q 6 hrs prn pain HYDROCODONE-ACETAMINOPHEN 5-325 MG TABS 172684 HYDROCODONE-ACETAMINOPHEN Inactive [facility] IBUPROFEN IB 200 MG TABS 600 mg q 6 hrs prn pain [facility] IBUPROFEN IB 200 MG TABS 699102 IBUPROFEN Inactive PREDNISONE 20 MG TAB 1 tablet twice daily for 2 days, then 1 tablet once daily for 2 days PREDNISONE 20 MG TAB 284522 PREDNISONE Inactive LISINOPRIL-HYDROCHLOROTHIAZIDE 10-12.5 MG TABS 1 pill daily, for blood pressure LISINOPRIL-HYDROCHLOROTHIAZIDE 10-12.5 MG TABS 430528 LISINOPRIL-HYDROCHLOROTHIAZIDE Inactive PREDNISONE 20 MG TAB 2 tabs daily for 3 days, 1 tab daily for 3 days, 1/2 tab daily for 2 days PREDNISONE 20 MG TAB 706724 PREDNISONE Inactive AZITHROMYCIN 250 MG TABS 2 po qd x 1 day, then 1 po qd x 4 days AZITHROMYCIN 250 MG TABS 5785086 AZITHROMYCIN Inactive Vital Signs Date Name Value [...] MICROALBUMIN - Chemistry sodium, serum 139 mmol/L 927-745 7604/09/03 potassium, serum 4.3 mmol/L 3.5-5.2 chloride, serum [...] 0.76-1.46 Encounters Code Encounter Date Provider Facility CPT-86806 Level 4 Est. Patient 17:45:16 AWS SOLUTION ARCHITECT Evin Graves MD [facility] CPT-86835 Level 4 Est. Patient 20:00:09 CDT Do Beyer MD PhD [facility] CPT-58260 Level 3 Est. Patient 11:26:17 AWS SOLUTION ARCHITECT Trey Burks DO [facility] CPT-73755 Level 3 Est. Patient 10:37:36 CDT Corby Márquez MD [facility] Procedures Code Procedure Name Date Entry Date Standard Description CPT-52976 Spec Collection and Handling Fee 11:50:17 AWS SOLUTION ARCHITECT
--- OUTSIDE RECORDS SUMMARY | 2018-10-24 19:54 | XMS REPORT | Continuity of Care Document ---
Author Organization Unknown Address Unknown Allergies There is no data. Medications There is no data. Problems Date Dx Coded Attending Type Code Diagnosis Diagnosed By 09/18/2018 FLOR SILVER F41.9 Anxiety disorder, unspecified 09/18/2018 FLOR SILVER G47.00 Insomnia, unspecified 09/18/2018 FLOR SILVER I10 Essential (primary) hypertension Procedures There is no data. Results There is no data. Encounters ACCT No. Visit Date/Time Discharge Status Pt. Type Provider Facility Loc./Unit Complaint [id number] 09/18/2018 10:30:00 09/18/2018 14:30:00 DIS Outpatient FLOR SILVER [facility] [id number] 06/30/2015 10:11:03 ACT Unknown
--- OUTSIDE RECORDS SUMMARY | 2018-10-24 19:54 | XMS REPORT | Clinical Summary ---
Author Author Admin, ANNE Organization [facility] Address Unknown Phone Unavailable Allergies, Adverse [...] TABS 1 daily for Bipolar symptoms ARIPIPRAZOLE 96492692026 Active Evin Graves MD Active LISINOPRIL 10 MG TABS Take 1 tablet daily LISINOPRIL 53422697867 Active Evin Graves MD Active LISINOPRIL-HYDROCHLOROTHIAZIDE 10-12.5 MG TABS 1 pill daily, for blood pressure LISINOPRIL-HYDROCHLOROTHIAZIDE 67876221173 No Longer Active Evin Graves MD Active TRAZODONE HCL 50 MG TABS 1 tab at bedtime TRAZODONE HCL 08907815151 Active Do Beyer MD PhD Active PREDNISONE 20 MG TAB 1 tablet twice daily for 2 days, then 1 tablet once daily for 2 days PREDNISONE 56900487008 No Longer Active Do Beyer MD PhD Active AZITHROMYCIN 250 MG TABS 2 po qd x 1 day, then 1 po qd x 4 days AZITHROMYCIN 86219516961 No Longer Active Trey Burks DO Active [facility] IBUPROFEN IB 200 MG TABS 600 mg q 6 hrs prn pain IBUPROFEN 55366959426 No Longer Active Trey Burks DO Active HYDROCODONE-ACETAMINOPHEN 5-325 MG TABS 1 or 2 q 6 hrs prn pain HYDROCODONE-ACETAMINOPHEN 29906247865 No Longer Active Trey Burks DO Active LORTAB 7.5-500 MG TABS take 1 tab po TID HYDROCODONE-ACETAMINOPHEN 50788876239 No Longer Active Trey Burks DO Active PREDNISONE 20 MG TAB 2 tabs daily for 3 days, 1 tab daily for 3 days, 1/2 tab daily for 2 days PREDNISONE 83537201403 No Longer Active Corby Márquez MD Active LORTAB 7.5-500 MG TABS take 1 tab po TID LORTAB 7.5-500 MG TABS HYDROCODONE-ACETAMINOPHEN Inactive HYDROCODONE-ACETAMINOPHEN 5-325 MG TABS 1 or 2 q 6 hrs prn pain HYDROCODONE-ACETAMINOPHEN 5-325 MG TABS 946274 HYDROCODONE-ACETAMINOPHEN Inactive [facility] IBUPROFEN IB 200 MG TABS 600 mg q 6 hrs prn pain [facility] IBUPROFEN IB 200 MG TABS 846581 IBUPROFEN Inactive PREDNISONE 20 MG TAB 1 tablet twice daily for 2 days, then 1 tablet once daily for 2 days PREDNISONE 20 MG TAB 875919 PREDNISONE Inactive LISINOPRIL-HYDROCHLOROTHIAZIDE 10-12.5 MG TABS 1 pill daily, for blood pressure LISINOPRIL-HYDROCHLOROTHIAZIDE 10-12.5 MG TABS 707870 LISINOPRIL-HYDROCHLOROTHIAZIDE Inactive PREDNISONE 20 MG TAB 2 tabs daily for 3 days, 1 tab daily for 3 days, 1/2 tab daily for 2 days PREDNISONE 20 MG TAB 393294 PREDNISONE Inactive AZITHROMYCIN 250 MG TABS 2 po qd x 1 day, then 1 po qd x 4 days AZITHROMYCIN 250 MG TABS 7607566 AZITHROMYCIN Inactive Vital Signs Date Name Value Unit Range Description blood pressure, diastolic - 8462-4 78 mm[Hg] BP snowden blood pressure, systolic - 8480-6 130 mm[Hg] BP sys pulse rate E&M - 8867-4 95 /min Heart rate temperature E&M 99.4 [degF] Body temperature weight E&M - 3141-9 159 [lb_av] Weight Measured blood pressure, diastolic - 8462-4 95 mm[Hg] [...] MICROALBUMIN - Chemistry sodium, serum 139 mmol/L 242-051 6422/09/03 potassium, serum 4.3 mmol/L 3.5-5.2 chloride, serum [...] 0.36-3.74 Encounters Code Encounter Date Provider Facility CPT-52180 Level 4 Est. Patient 17:45:16 EQUIPMENT INSTALLATION PROFESSIONAL Evin Graves MD [facility] CPT-27487 Level 4 Est. Patient 20:00:09 CDT Do Beyer MD PhD [facility] CPT-20929 Level 3 Est. Patient 11:26:17 EQUIPMENT INSTALLATION PROFESSIONAL Trey Burks DO [facility] CPT-78067 Level 3 Est. Patient 10:37:36 CDT Corby Márquez MD [facility] Procedures Code Procedure Name Date Entry Date Standard Description CPT-27494 Spec Collection and Handling Fee 11:50:17 EQUIPMENT INSTALLATION PROFESSIONAL
[2018-10-24] MEDS ORDERED: NS IV 1000 ML 1,000 ML IV SCH (20:00)
[2018-10-24] MEDS ORDERED: LORazepam INJ 2 MG/ML (ATIVAN) VIAL IVP PRN (20:00)
[2018-10-24 20:03] LABS: BASOPHILS # (AUTO) 0.1 10^3/uL (0.0-0.1); BASOPHILS % (AUTO) 1 % (0-10); EOSINOPHILS # (AUTO) 0.2 10^3/uL (0.0-0.3); EOSINOPHILS % (AUTO) 1 % (0-10); HEMATOCRIT 45 % (40-54); HEMOGLOBIN 15.4 G/DL (13.3-17.7); LYMPHOCYTES # (AUTO) 1.9 X 10^3 (1.0-4.0); LYMPHOCYTES % (AUTO) 15 % (12-44); MEAN CORPUSCULAR HEMOGLOBIN 31 PG (25-34); MEAN CORPUSCULAR HGB CONC 34 G/DL (32-36); MEAN CORPUSCULAR VOLUME 90 FL (80-99); MONOCYTES # (AUTO) 1.4 X 10^3 (0.0-1.0); MONOCYTES % (AUTO) 11 % (0-12); NEUTROPHILS % (AUTO) 72 % (42-75); PLATELET COUNT 267 10^3/uL (130-400); RED CELL DISTRIBUTION WIDTH 12.7 % (10.0-14.5); WHITE BLOOD COUNT 12.6 10^3/uL (4.3-11.0)
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
[2018-10-24 20:22] LABS: ALANINE AMINOTRANSFERASE 29 U/L (0-55); ALBUMIN 4.9 GM/DL (3.2-4.5); ALKALINE PHOSPHATASE 87 U/L (40-136); BILIRUBIN,TOTAL 1.3 MG/DL (0.1-1.0); BUN/CREATININE RATIO 18; CALCIUM 10.2 MG/DL (8.5-10.1); CARBON DIOXIDE 22 MMOL/L (21-32); CHLORIDE 102 MMOL/L (98-107); CREATININE SERUM 1.88 MG/DL (0.60-1.30); GFR ESTIMATED 39; GLUCOSE 110 MG/DL (70-105); POTASSIUM 3.7 MMOL/L (3.6-5.0); SALICYLATE < 5.0 MG/DL (5.0-20.0); SODIUM 140 MMOL/L (135-145); TOTAL PROTEIN 8.2 GM/DL (6.4-8.2)
[2018-10-24 20:28] LABS: ACETAMINOPHEN < 10 UG/ML (10-30)
[2018-10-24 20:49] LABS: CREATINE KINASE 980 U/L (30-200)
[2018-10-24 21:03] LABS: CLARITY,URINE SLIGHTLY CLOUDY; COLOR,URINE AMBER; GLUCOSE, URINE (UA) NEGATIVE (NEGATIVE); KETONES,URINE 1+ (NEGATIVE); LEUKOCYTE ESTERASE ,URINE 1+ (NEGATIVE); NITRITE,URINE NEGATIVE (NEGATIVE); PH,URINE 5 (5-9); PROTEIN,URINE 2+ (NEGATIVE); UROBILINOGEN,URINE 1 MG/DL (NORMAL)
[2018-10-24 21:20] LABS: AMPHETAMINE SCREEN, URINE POSITIVE (NEGATIVE); BARBITURATE SCREEN URINE NEGATIVE (NEGATIVE); BENZODIAZEPINES SCREEN URINE NEGATIVE (NEGATIVE); CANNABINOID SCREEN, URINE NEGATIVE (NEGATIVE); COCAINE SCREEN URINE NEGATIVE (NEGATIVE); METHADONE STAT NEGATIVE (NEGATIVE); METHAMPHETAMINE SCREEN URINE S POSITIVE (NEGATIVE); OPIATE SCREEN URINE NEGATIVE (NEGATIVE); OXYCODONE STAT NEGATIVE (NEGATIVE); PROPOXYPHENE STAT NEGATIVE (NEGATIVE); TRICYCLIC ANTIDEPRESSANTS SCRE NEGATIVE (NEGATIVE)
[2018-10-24 21:21] LABS: BACTERIA,URINE NEGATIVE /HPF; BILIRUBIN,URINE 1+ (NEGATIVE)
[2018-10-24 21:22] LABS: AMORPHOUS SEDIMENT,UR FEW AMOR URATES /LPF; URINE OTHER FEW SPERM /HPF
--- OUTSIDE RECORDS SUMMARY | 2018-10-24 22:04 | XMS REPORT | Continuity of Care Document ---
[...] Status Pt. Type Provider Facility Loc./Unit Complaint [id number] 09/18/2018 10:30:00 09/18/2018 14:30:00 DIS Outpatient FLOR SILVER [facility] [id number] 06/30/2015 10:11:03 ACT Unknown
[2018-10-24 22:30] VITALS: BP 113/73
--- NOTE | 2018-10-24 22:30 | NUR ---
NOAH PULIDO admitted to room 430-1, with an admitting diagnosis of RHABDOMYOLYSIS, on 10/24/18 from ED via WHEELCHAIR , accompanied by ED STAFF.NOAH PULIDO introduced to surroundings, call light, bed controls, phone, TV, temperature control, lights, meal times, smoking policy, visitor policy, side rail policy, bathrooms and showers. Patient Rights given to patient in the handbook. NOAH PULIDO verbalizes understanding that [facility] is not responsible for the loss or damage to any personal effects or valuables that are kept in the patients posession during their hospitalization. NOAH PULIDO verbalizes understanding of Interdisciplinary Patient Education. Patient and/or family were informed about the Rapid Response Team and its purpose.
[2018-10-24] MEDS ORDERED: LACTATED RINGERS 1,000 ML IV ONE (22:36)
[2018-10-24] MEDS: LACTATED RINGERS 1,000 ML IV SCH (22:50)
--- NOTE | 2018-10-24 23:02 | NUR ---
PATIENT'S WALLET AND BIOMEDICAL ELECTRONICS TECHNICIAN LOCKED IN [facility] ROOM. PATIENT UNABLE TO ANSWER ADMISSION QUESTIONS, ADMISSION QUESTIONS WILL BE RECALLED FROM PREVIOUS VISITS.
[2018-10-25 00:27] VITALS: BP 118/76
[2018-10-25] MEDS: LACTATED RINGERS 1,000 ML IV SCH ×6 (02:36→21:17)
[2018-10-25 04:00] VITALS: BP 117/75
[2018-10-25 06:33] LABS: BASOPHILS % (AUTO) 0 % (0-10); EOSINOPHILS # (AUTO) 0.2 10^3/uL (0.0-0.3); EOSINOPHILS % (AUTO) 2 % (0-10); HEMATOCRIT 42 % (40-54); HEMOGLOBIN 14.2 G/DL (13.3-17.7); LYMPHOCYTES # (AUTO) 2.4 X 10^3 (1.0-4.0); LYMPHOCYTES % (AUTO) 25 % (12-44); MEAN CORPUSCULAR HEMOGLOBIN 31 PG (25-34); MEAN CORPUSCULAR HGB CONC 34 G/DL (32-36); MEAN CORPUSCULAR VOLUME 93 FL (80-99); MEAN PLATELET VOLUME 9.3 FL (7.4-10.4); MONOCYTES # (AUTO) 0.8 X 10^3 (0.0-1.0); MONOCYTES % (AUTO) 8 % (0-12); NEUTROPHILS # (AUTO) 6.2 X 10^3 (1.8-7.8); NEUTROPHILS % (AUTO) 64 % (42-75); PLATELET COUNT 214 10^3/uL (130-400); RED CELL DISTRIBUTION WIDTH 12.6 % (10.0-14.5); WHITE BLOOD COUNT 9.6 10^3/uL (4.3-11.0)
[2018-10-25 08:00] VITALS: BP 127/66
[2018-10-25] MEDS: LORazepam INJ 2 MG/ML (ATIVAN) VIAL IV PRN ×2 (08:45→20:25)
[2018-10-25 12:00] VITALS: BP 137/67
[2018-10-25 12:14] LABS: ALANINE AMINOTRANSFERASE 23 U/L (0-55); ALBUMIN 3.8 GM/DL (3.2-4.5); ALKALINE PHOSPHATASE 69 U/L (40-136); BILIRUBIN,TOTAL 1.7 MG/DL (0.1-1.0); BUN/CREATININE RATIO 24; CALCIUM 8.9 MG/DL (8.5-10.1); CARBON DIOXIDE 23 MMOL/L (21-32); CHLORIDE 108 MMOL/L (98-107); CREATINE KINASE 585 U/L (30-200); CREATININE SERUM 1.13 MG/DL (0.60-1.30); GFR ESTIMATED > 60; GLUCOSE 81 MG/DL (70-105); SODIUM 140 MMOL/L (135-145); TOTAL PROTEIN 6.3 GM/DL (6.4-8.2)
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
--- NOTE | 2018-10-25 15:05 | NUR ---
[facility] system down from [id number] today.
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
[2018-10-25 16:46] VITALS: BP 125/70
[2018-10-25 19:51] VITALS: BP 114/78
--- NOTE | 2018-10-25 19:57 | NUR ---
PATIENT REPORTS RASH ON BACK, SORE THROAT, AND BODY ACHES. DR. AUGUST NOTIFIED AND ORDERED TYLENOL 650MG PO Q4 PRN.
[2018-10-25] MEDS: ACETAMINOPHEN 325 MG TABLET PO PRN (20:25)
[2018-10-26 00:27] VITALS: BP 126/82
[2018-10-26] MEDS: LACTATED RINGERS 1,000 ML IV SCH ×4 (01:13→12:56)
[2018-10-26 04:01] VITALS: BP 124/69
[2018-10-26 06:42] LABS: BUN/CREATININE RATIO 17; CALCIUM 8.3 MG/DL (8.5-10.1); CARBON DIOXIDE 26 MMOL/L (21-32); CHLORIDE 106 MMOL/L (98-107); CREATINE KINASE 373 U/L (30-200); CREATININE SERUM 0.82 MG/DL (0.60-1.30); GFR ESTIMATED > 60; GLUCOSE 84 MG/DL (70-105); POTASSIUM 3.7 MMOL/L (3.6-5.0); SODIUM 139 MMOL/L (135-145)
[2018-10-26 08:00] VITALS: BP 136/86
[2018-10-26] MEDS: LORazepam INJ 2 MG/ML (ATIVAN) VIAL IV PRN (08:45)
[2018-10-26] MEDS: ACETAMINOPHEN 325 MG TABLET PO PRN (08:45)
--- NOTE | 2018-10-26 11:45 | Discharge Inst-Simple/Standard ---
Discharge Inst-Standard Patient Instructions/Follow Up Plan of Care/Instructions/FU: Please continue to avoid further drug use. Activity as Tolerated: Yes Discharge Diet: No Restrictions Return to The Hospital For: Chest pain, shortness of breath, worsening muscle pain, if you feel you are getting worse. SINAN HATCH MD Oct 26, 2018 11:45
[2018-10-26 12:00] VITALS: BP 103/56
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
--- NOTE | 2018-10-26 14:47 | NUR ---
CM/SS. Visited with patient who presents significantly better from yesterday regarding probable meth induced hyperactivity and constant movement. He is much calmer and follows conversation appropriately. He does report "flu" symptoms, sore throat and around his eyes is reddened and puffy. [facility]IGNA notes reflect hospitalist was notified. Friend Diana is here at bedside and she states he will come home with her. Friend Shamika Lizandro will be their transport and they are independent to call her for the arrangement. Diana states she is current with [facility] and that they are going to get patient established there also. Assistant Product Manager explored his home Rx with him, it appears he has had prescription history but has been noncompliant to maintain them for an extended period.
[2018-10-26 15:50] VITALS: BP 149/91
[2018-10-26 16:30] VITALS: BP 149/91
--- NOTE | 2018-10-26 16:30 | NUR ---
NOAH PULIDO demonstrates understanding of discharge instructions and accurately returns instructions upon questioning. Copy of Post-Discharge Instructions and Medication Discharge Instructions given to PATIENT. NOAH PULIDO is able to manage continuing needs after discharge. Patients belongings returned to [facility]. Skin dry and intact; no breakdown noted. Patient discharged from 430-1 on at 1630. NOAH PULIDO left floor via WHEELCHAIR, accompanied by FRIENDS AND STAFF.
== END 2018-10-26 16:30 | disposition home or self-care (01) | DRG 558 ==
LOC: EDUNIT# 19:45 → ER 19:46 → 4TH 21:34 → OBSVTOIN 21:34
PROVIDERS: ADMIT Internal Medicine; ATTEND Internal Medicine
DX: M62.82 Rhabdomyolysis (principal); N17.9 Acute kidney failure, unspecified; F15.150 Other stimulant abuse with stimulant-induced psychotic disorder with delusions; F22 Delusional disorders; F17.210 Nicotine dependence, cigarettes, uncomplicated
CPT/HCPCS: 36415; 80048; 80053; 80306; 80320; 80329; 81000; 82550; 84484; 85025; 93005; 96361; 96374

== ENCOUNTER 2020-11-20 13:55 | Emergency (ER) | payer SELFPAY ==
[~2020-11-20] VITALS: Ht 177.8 cm; Wt 68.0 kg
--- NOTE | 2020-11-20 14:33 | ED Respiratory ---
General Chief Complaint: Cough/Cold/Flu Symptoms Stated Complaint: ALL COVID SYMPTOMS Source: patient Exam Limitations: no limitations History of Present Illness Date Seen by Provider: Nov 20, 2020 Time Seen by Provider: 14:18 Initial Comments Patient is a 50-year-old male who presents to the emergency department today with a chief complaint of "all the Covid symptoms". Patient states that he has had fevers, chills, cough, runny nose and sore throat. He endorses body aches and nausea. He has had decreased appetite. Patient states his symptoms have been going on for 3 or 4 days. He lives with 2 roommates and presents with his girlfriend who has similar if not worse symptoms. Patient states he has been taking Tylenol for fever his last dose was about an hour prior to arrival. He denies diarrhea or urinary complaints. He is not Covid vaccinated. He has a past medical history significant for hypertension. No allergies to medications. He is a smoker. All other review of systems reviewed and negative except as stated above. Timing/Duration: getting worse Severity: mild Prior Episodes/Possible Cause: illness exposure Modifying Factors: Worse With Coughing Associated Symptoms: cough, earache, fever/chills, headache, muscle aches, nasal congestion, nasal drainage, shortness of breath, sore throat Allergies and Home Medications Allergies Coded Allergies: No Known Drug Allergies (Unverified , 10/24/18) Home Medications No Active Prescriptions or Reported Meds Patient Home Medication List Home Medication List Reviewed: Yes Review of Systems Review of Systems Constitutional: see HPI EENTM: ear pain, throat pain Respiratory: cough, phlegm, short of breath Cardiovascular: no symptoms reported Gastrointestinal: no symptoms reported Genitourinary: no symptoms reported Musculoskeletal: muscle cramps Skin: no symptoms reported Psychiatric/Neurological: Headache All Other Systems Reviewed Negative Unless Noted: Yes Past Pjxbbwv-Rqjlqj-Wvnjhf Hx Seasonal Allergies Seasonal Allergies: No Past Medical History Surgeries: No Respiratory: No Cardiac: No Neurological: No Genitourinary: No Gastrointestinal: No Musculoskeletal: No Endocrine: No HEENT: No Cancer: No Psychosocial: No Integumentary: No Blood Disorders: No Family Medical History No Pertinent Family Hx Physical Exam Vital Signs - First Documented Capillary Refill : Height: 5'8.00" Weight: 160lbs. 2.0oz. [id number]; 23.1 BMI Method:Stated General Appearance: WD/WN, no apparent distress Eyes: Bilateral Eye Normal Inspection, Bilateral Eye PERRL, Bilateral Eye EOMI HEENT: normal ENT inspection, TMs normal, pharynx normal Neck: full range of motion, supple, normal inspection Respiratory: lungs clear, normal breath sounds, no respiratory distress, no accessory muscle use Cardiovascular: regular rate, rhythm Gastrointestinal: non tender, soft Extremities: non-tender, normal inspection, no pedal edema, no calf tenderness Neurologic/Psychiatric: alert, normal mood/affect, oriented x 3 Skin: normal color, warm/dry Progress/Results/Core Measures Suspected Sepsis SIRS Temperature: Pulse: Respiratory Rate: Blood Pressure / Mean: Results/Orders Lab Results Laboratory Tests Test 11/20/20 14:20 Range/Units My Orders Vital Signs/I&O 11/20/20 11/20/20 14:10 14:10 Temp 37.2 Pulse 92 Resp 18 B/P (MAP) 142/93 (109) Pulse Ox 99 O2 Delivery Room Air Room Air Capillary Refill : Progress Note : Time: 15:45 Progress Note Patient's Covid positive loooks well. nontoxic; no respiratory distress or increased work of breathing. home with supportive care Departure Impression Primary Impression: COVID-19 Disposition: 01 HOME, SELF-CARE Condition: Stable Departure-Patient Inst. Decision time for Depature: 14:31 Referrals: [facility]/FREDI MOLINA,LOCAL PHYSICIAN (PCP) Primary Care Physician Patient Instructions: COVID-19 ED Add. Discharge Instructions: Drink plenty of fluids to stay well-hydrated. Take [id number] ibuprofen and Tylenol, alternate dosing every 4-6 hours for fever and body aches. [facility]. You can take this to help with nausea and to tolerate food. Return to the emergency department for any worsening symptoms, shortness of breath, high fevers or other emergent concerning symptoms. Scripts No Active Prescriptions or Reported Meds CECILY RUBIO MD Nov 20, 2020 14:33
[2020-11-20 15:55] VITALS: BP 131/91
== END 2020-11-20 16:09 | disposition home or self-care (01) ==
LOC: EDUNIT# 13:55 → ER 13:57
DX: U07.1 COVID-19 (principal)
CPT/HCPCS: 87636; 99282